=== PATIENT | female | born 1945 | race Caucasian/White ===

== ENCOUNTER → 2020-11-13 08:06 | Outpatient (CLI) | payer MEDICARE, SELFPAY ==
--- NOTE | ~2020-11-13 | XR_ITS ---
EXAMINATION: XR foot LT min 3V, XR ankle LT min 3V DATE: 11/13/2020 08:51 INDICATION: Follow-up postoperative changes with internal fixation in the left foot. TECHNIQUE: 1. Anteroposterior, mortise, additional oblique and lateral view of the left ankle were obtained. 2. Dorsoplantar, two oblique and lateral views of the left foot were obtained. COMPARISON: None. FINDINGS: Mild hallux valgus. There appears to be pes planus with flattening of the longitudinal arch although this is not diagnostically evaluated on nonweightbearing imaging. Postoperative change throughout the left mid and forefoot. This includes prior bunionectomy at the medial head of the first metatarsal. Likely realignment osteotomy at the base of the first proximal phalanx with staple fixation. First ta rsal metatarsal arthrodesis with dorsal plate and screw fixation. There is a fracture of the proximal most screw which extends into the medial cuneiform. The second most proximal screw as well as obliqu e screw both extend into the medial cuneiform and . Well seated without surrounding lucency to sugges t loosening. There does appear to be osseous fusion along the dorsal/lateral aspect of the joint spac e. Additional arthrodeses with compression screw fixations at the third and fourth proximal interphal angeal joints. There is attempted arthrodesis across the second proximal and distal interphalangeal j oints with a compression screw extending from the tuft of the distal phalanx through the middle phala nx to the distal aspect of the proximal phalanx. There is residual lucency along the proximal interph alangeal joint line along with lucency surrounding the proximal tip of the screw consistent with loos ening and likely failure of the attempted arthrodesis at the proximal interphalangeal joint. Osteotom ies with screw fixations at the necks of the second and third metatarsals. No acute fracture. Mild po lyarticular osteoarthritis at the calcaneocuboid and multiple tarsal metatarsal, metatarsophalangeal and at the remaining unfused interphalangeal joints. Small plantar calcaneal spur. Diffuse osteopenia . Increased density anterior to the tibiotalar joint line suggesting an ankle joint effusion or synov itis. IMPRESSION: 1. Multiple postoperative changes in the left fore and midfoot as detailed above. This most significa nt for likely failed arthrodesis across the second proximal interphalangeal joint with lucency surrou nding the proximal tip of the compression screw consistent with loosening. 2. Increased density anterior to the left ankle joint suggesting joint effusion and/or synovitis. Reviewed, dictated and finalized at location A. IMPRESSION: 1. Multiple postoperative changes in the left fore and midfoot as detailed abov e. This most significant for likely failed arthrodesis across the second proxim al interphalangeal joint with lucency surrounding the proximal tip of the compr ession screw consistent with loosening. 2. Increased density anterior to the left ankle joint suggesting joint effusion and/or synovitis.
--- NOTE | ~2020-11-13 | XR_ITS ---
EXAMINATION: XR ankle RT min 3V, XR foot RT min 3V DATE: 11/13/2020 08:51 INDICATION: Follow-up postoperative changes with internal fixation in the right foot. TECHNIQUE: 1. Anteroposterior, mortise, additional oblique and lateral view of the right ankle were obtained. 2. Dorsoplantar, two oblique and lateral views of the right foot were obtained. COMPARISON: None. FINDINGS: Alignment of the foot and ankle is normal. No fracture. Postoperative changes at the first metatarsal with dorsal sided staple and medial sided plate and screws at the base of the first metatarsal. More distally there is a compression screw crossing neck of the first metatarsal where there appears to b een a prior realignment osteotomy. There is a suture anchor along the medial side of the neck of the first metatarsal. Arthrodesis across the second proximal interphalangeal joint without instrumentatio n. No instrumentation failure or lucency surrounding any of the instrumentation to suggest loosening. 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 Minimal osteoarthritis at the tarsal metatarsal joints. Tiny plantar calcaneal spur. Increased dens ity anterior to the tibiotalar joint line suggesting possible small right ankle joint effusion. IMPRESSION: 1. Second proximal interphalangeal joint arthrodesis along with postoperative changes along the right first metatarsal as detailed above. Reviewed, dictated and finalized at location A. IMPRESSION: 1. Second proximal interphalangeal joint arthrodesis along with postoperative c hanges along the right first metatarsal as detailed above.
== END ==
PROVIDERS: PCP Family Medicine; Visit Provider Physician Assistant
DX: M79.671 Pain in right foot (principal); M79.672 Pain in left foot
CPT/HCPCS: 73610; 73630

== ENCOUNTER 2021-01-01 13:22 | Outpatient (CLI) | payer MEDICARE, SELFPAY ==
--- NOTE | ~2021-01-01 | XR_ITS ---
EXAMINATION: XR lg joint inject/asp w image DATE: 01/01/2021 15:24 INDICATION: Severe right glenohumeral osteoarthritis with right shoulder pain. TECHNIQUE: A time-out was performed to verify the patient's name, date of , and procedure to patria e performed. The procedure including the risks, benefits, and alternatives was discussed with the pat ient. Risks discussed included bleeding and infection. The patient understood the risks and agreed to proceed. The skin overlying the rotator cuff interval of the right glenohumeral joint was prepped a nd draped in usual sterile fashion. Anesthetic was administered with 1% lidocaine subcutaneously. A 22 G needle was advanced under fluoroscopic guidance into the joint. Injection of 1 mL of Omnipaque 240 confirmed intra-articular position of the needle. Subsequently, injectate consisting of 4 mL of a 3:1 mixture of 1% lidocaine: 80 mg/mL Depo-Medrol for a total dosage of 80 mg Depo-Medrol was inst illed. Washout of contrast was seen confirming intra-articular administration. The needle was removed and the entry site was cleaned and dressed. There were no immediate complications. Fluoroscopy expo sure time was 0.1 minutes. The total number of images was 2. Total DAP was 0.401 mGycm^2 FINDINGS: Real-time fluoroscopy demonstrates the needle in the right glenohumeral joint. Patient's pa in prior to procedure:11/27. Patient's pain following the procedure: 05/30. IMPRESSION: 1. Successful right glenohumeral injection of local anesthetic and steroid with decrease in the patie nt's presenting pain. Reviewed, dictated and finalized at location A. IMPRESSION: 1. Successful right glenohumeral injection of local anesthetic and steroid with decrease in the patient's presenting pain.
== END 2021-01-01 13:23 | disposition home or self-care (01) ==
PROVIDERS: PCP Family Medicine; Visit Provider Orthopaedic Surgery
DX: M25.511 Pain in right shoulder (principal); M19.011 Primary osteoarthritis, right shoulder
CPT/HCPCS: 20610; 77002; J1040; Q9966

== ENCOUNTER → 2021-03-07 15:19 | Outpatient (CLI) | payer MEDICARE, SELFPAY ==
--- NOTE | ~2021-03-07 | MM_ITS ---
EXAMINATION: MM screening jaciel BI w scott HISTORY: Screening mammogram, history of left breast cancer TECHNIQUE: Craniocaudal and mediolateral oblique 3-D tomosynthesis images were obtained and synthetic 2-D images were generated. CAD analysis was submitted and interpreted. COMPARISON: 07/07/2016 BREAST PARENCHYMAL COMPOSITION: There are scattered areas of fibroglandular density. FINDINGS: RIGHT BREAST: There is focal asymmetry in the upper outer quadrant of the breast. LEFT BREAST: Stable architectural distortion in the upper inner breast is consistent with lobectomy c hange. There is no evidence of suspicious mass, calcification, or architectural distortion to suggest malignancy. There has been no significant interval change. IMPRESSION: 1. Focal asymmetry of the upper outer quadrant of the right breast which may represent the patient's baseline however no right breast comparison is currently available. 2. Comparison with prior mammograms is necessary. BI-RADS Category 0: Incomplete: Needs comparison with prior mammograms. Reviewed, dictated and finalized at location A. 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 Focal asymmetry of the upper outer quadrant of the right breast which may re present the patient's baseline however no right breast comparison is currently available. 2. Comparison with prior mammograms is necessary. BI-RADS Category 0: Incomplete: Needs comparison with prior mammograms.
== END ==
PROVIDERS: Visit Provider Physician Assistant
DX: Z12.31 Encounter for screening mammogram for malignant neoplasm of breast (principal); R92.8 Other abnormal and inconclusive findings on diagnostic imaging of breast
CPT/HCPCS: 77063; 77067

== ENCOUNTER 2021-10-01 12:03 | Outpatient (CLI) | payer MEDICARE, SELFPAY ==
--- NOTE | ~2021-10-01 | DEXA_ITS ---
Bone Density Report Name: PRECIOUS [facility] Age: 75 Sex: Female Ethnicity: White Date of : 1945 Indication: postmenopausal; screening for osteoporosis; height loss; cancer; asthma or emphysema; Referring Provider: MARIAH SHARMA Study: Bone densitometry was performed. Exam Date: October 01, 2021 Accession number: [id number] Bone Density: Region BMD T-score Z-score Classification AP Spine(L1-L4) 0.909 -1.3 1.3 Osteopenia Femoral Neck (Left) 0.660 -1.7 0.5 Osteopenia Total Hip (Left) 0.831 -0.9 1.0 Normal Femoral Neck (Right) 0.657 -1.7 0.4 Osteopenia Total Hip (Right) 0.844 -0.8 1.1 Normal Total Hip Mean 0.837 -0.9 1.1 Normal World Health Organization criteria for BMD impression classify patients as: Normal (T-score at or above -1.0), Osteopenia (T-score between -1.0 and -2.5), or Osteoporosis (T-score at or below -2.5). 10-year Fracture Risk(1): Major Osteoporotic Fracture 13% Hip Fracture 2.9% Reported Risk Factors: [place] (), Neck BMD=0.660, BMI=31.2 (1) FRAX(R) Version 3.08. Fracture probability calculated for an untreated patient. Fracture probability may be lower if the patient has received treatment. Clinical Information Provided by Patient: Has used the following medications: Vitamin D, Calcium Has the following medical conditions: Asthma or Emphysema, Cancer Patient maximum height was 66 Menopause Age: 49 Drinks caffeinated beverages Onset of menses at age 15 Number of children 2 Impression: The patient has low bone mass, based on the Left Femoral Neck T-score. The patient has an estimated ten-year risk of hip fracture of 2.9% and an estimated ten-year risk of major fracture of 13%, based on the WHO FRAX algorithm. Discussion: BONE DENSITY IS LOW AT ONE OR MORE SKELETAL SITES. This patient's lowest T-score is low at one or more skeletal sites. It meets the World Health Organization's (WHO) criteria for ?low bone mass? (T-score between -1.0 and -2.5). The patient's 10-year risk of fracture as calculated by FRAX is less than the threshold where pharmacological therapy is recommended by the National Osteoporosis Foundation (NOF). However, all treatment decisions require clinical judgment and consideration of individual patient factors, including patient preferences, comorbidities, previous drug use, risk factors not captured in the FRAX model (e.g., frailty, falls, vitamin D deficiency, increased bone turnover, interval significant decline in bone density) and possible under or overestimation of fracture risk by FRAX. The patient should follow a healthful lifestyle (good nutrition with adequate calcium and vitamin D, and appropriate weight-bearing exercise). Follow-Up: Consider repeating this study in 2 to 3 years to reassess this patient's status, or sooner i
== END 2021-10-01 12:04 | disposition home or self-care (01) ==
PROVIDERS: PCP Family Medicine; Visit Provider Family Medicine
DX: Z78.0 Asymptomatic menopausal state (principal); M85.89 Other specified disorders of bone density and structure, multiple sites
CPT/HCPCS: 77080

== ENCOUNTER → 2022-01-17 07:52 | Outpatient (CLI) | payer MEDICARE, SELFPAY ==
--- NOTE | ~2022-01-17 | MMUS_ITS ---
EXAMINATION: MM diagnostic jaciel BI w scott, US breast BI complete HISTORY: Personal history of left breast ductal carcinoma in situ, treated with radiation. TECHNIQUE: ML, MLO and CC 3-D tomosynthesis images of both breasts were performed and synthetic 2-D i mages were generated. CAD analysis was submitted and interpreted. High resolution bilateral complete breast ultrasound including all 4 quadrants and subareolar areas was performed. COMPARISON: 03/07/2021, 02/29/2020, 02/23/2019 mammogram examinations BREAST PARENCHYMAL COMPOSITION: There are scattered areas of fibroglandular density. FINDINGS: MAMMOGRAPHIC FINDINGS: The left breast is chronically smaller than the right. Stable mild fibroglandular asymmetry. No suspi cious mass or architectural distortion, malignant calcification, skin thickening or retraction or sig nificant new or developing density is detected. ULTRASOUND: No suspicious mass or shadowing, cyst or other significant sonographic abnormality of either breast i s detected. IMPRESSION: 1. No mammographic evidence of malignancy 2. Routine annual mammographic screening is recommended. BI-RADS Category 2: Benign finding(s). Reviewed, dictated and finalized at location A. IMPRESSION: 1. No mammographic evidence of malignancy 2. Routine annual mammographic screening is recommended. BI-RADS Category 2: Benign finding(s).
== END ==
PROVIDERS: PCP Physician Assistant; Visit Provider Physician Assistant
DX: N63.20 Unspecified lump in the left breast, unspecified quadrant (principal); Z85.3 Personal history of malignant neoplasm of breast
CPT/HCPCS: 76641; 77062; 77066; G0279

== ENCOUNTER 2023-01-25 10:34 | Emergency (ER) | payer MEDICARE, SELFPAY ==
--- NOTE | ~2023-01-25 | XR_ITS ---
XR foot RT min 3V DATE: 01/25/2023 10:50 INDICATION: Foot pain after a fall yesterday TECHNIQUE: 4 views COMPARISON: 11/13/2020 right foot FINDINGS: There is a linear oblique minimally anteriorly displaced fracture of the distal shaft of th e fifth metatarsal bone. No other recent fracture or dislocation is evident. Postoperative change of the first metatarsal bone. Fusion at the proximal and middle phalanges of the second digit. Minimal plantar calcaneal enthesopathy. Diffuse osteopenia. IMPRESSION: Distal fifth metatarsal shaft fracture Reviewed, dictated and finalized at location A.
[2023-01-25 10:42] VITALS: BP 103/65; PULSE 80; RESP 18; TEMP 36.2; O2SAT 97
--- NOTE | 2023-01-25 10:45 | ED.LOWEXIN ---
HPI - Extremity Injury (Lower) General Chief Complaint: Extremity Injury, Lower Stated Complaint: Rt Foot Pain Due To Fall Source: patient Mode of arrival: ambulatory Limitations: no limitations History of Present Illness HPI Narrative: 77 y/o female presented for c/o right lateral foot pain after injury yesterday. States she tripped while walking in the park, landing on the grass and sidewalk, and striking the foot on the concrete. States she kept the foot elevated, took Tylenol Endorses bruising today. Reports no pain at rest, pain is 6-9/10 with walking. Denies any other pain or injury. Related Data Home Medications Medication Instructions Recorded Confirmed albuterol sulfate 90 mcg/actuation 1 puff inhalation Q4H PRN Dyspnea 04/29/19 01/25/23 aerosol inhaler (ProAir HFA) estradiol 0.01% (0.1 mg/gram) 1 gm vaginal WEEKLY PRN Vaginal 04/29/19 01/25/23 vaginal cream (Estrace) Dryness coenzyme Q10 100 mg capsule (Co 800 mg PO DAILY 06/15/19 01/25/23 Q-10) cholecalciferol (vitamin D3) 10 10 mcg PO DAILY 01/20/23 01/25/23 mcg (400 unit) capsule (Vitamin D3) clindamycin phosphate 1 % topical 1 applic topical DAILY PRN Rash 01/20/23 01/25/23 gel fluticasone propionate 50 2 spray intranasal DAILY 01/20/23 01/25/23 mcg/actuation nasal spray,suspension glucosamine sulf dipot 1 cap PO DAILY 01/20/23 01/25/23 chlr,msm,chond 550 mg-C 30 mg-jordon 1 mg capsule (Glucosamine Chondroitin) meloxicam 15 mg tablet 15 mg PO DAILY 01/20/23 01/25/23 pyridoxine (vitamin B6) 100 mg 100 mg PO DAILY 01/20/23 01/25/23 tablet tumeric 100 mg-claudy 150 mg-olive 1 cap PO DAILY 01/20/23 01/25/23 50 mg-oreg 150 mg-caprylate capsule vitamins A,C,Y-qykq-ejuiys 2,148 1 tablet PO DAILY 01/20/23 01/25/23 mcg-113 mg-45 mg-17.4 mg tablet (PreserVision AREDS) Allergies Allergy/AdvReac Type Severity Reaction Status Date / Time cefuroxime Allergy Severe Anaphylactic Verified 01/25/23 10:35 Shock tetracycline AdvReac Mild Redness of Verified 01/25/23 10:36 Skin Review of Systems Review of Systems: CONSTITUTIONAL: Denies body aches, fever, chills EYES: Denies visual changes ENT: Denies rhinorrhea, congestion CARDIOVASCULAR: Denies chest pain, palpitations, or edema. RESPIRATORY: Denies cough or dyspnea. GASTROINTESTINAL: Denies abdominal pain, nausea, vomiting, or diarrhea. SKIN: Denies rash, itching, or wounds. MUSCULOSKELETAL: Reports right foot pain Denies back pain, joint pain, or myalgia. NEUROLOGIC: Denies headache, numbness, tingling, or weakness. All systems reviewed & are unremarkable except as noted in HPI and below PMFSH Past Medical History Medical History Family history of colorectal cancer Surgical History Surgical History H/O shoulder surgery right Family History Family History Sibling Family history of thyroid disease Family history of diabetes mellitus in first degree relative Father Family history of Parkinson's disease Mother Carcinoma of colon Other Diabetes mellitus Family history of alcoholism Family history of arthritis Family history of gout Family history of mental disorder Social History Social History Social History: Smoking packs per day: 1 Smoking cigarettes per day: 20.0 Years smoked: 16 Smoking pack-years: 16.00 Smoking status: Former smoker Tobacco type: cigarettes Second hand tobacco smoke exposure: No Smoking end date: 04/20/89 Alcohol intake: current Drinks per week: 1 Substance use: never Substance use type: does not use Living arrangements: with family Occupation/Education: retired Gender identity (if verbalized by the patient): Female Sexual Orientation (if Verbalized by the Pa
== END 2023-01-25 11:58 | disposition home or self-care (01) ==
PROVIDERS: Emergency Provider Nurse Practitioner Family; PCP Family Medicine
DX: S92.351A Displaced fracture of fifth metatarsal bone, right foot, initial encounter for closed fracture (principal); Z79.899 Other long term (current) drug therapy; Z79.1 Long term (current) use of non-steroidal anti-inflammatories (NSAID); Z87.891 Personal history of nicotine dependence; W01.0XXA Fall on same level from slipping, tripping and stumbling without subsequent striking against object, initial encounter; Y92.830 Public park as the place of occurrence of the external cause
CPT/HCPCS: 29515; 73630; 99214; G0463

== ENCOUNTER → 2023-01-28 13:20 | Outpatient (CLI) | payer MEDICARE, SELFPAY ==
--- NOTE | ~2023-01-28 | MM_ITS ---
EXAMINATION: MM screening jaciel BI w scott HISTORY: Screening mammogram, family history of breast cancer in her mother. There is a TECHNIQUE: Craniocaudal and mediolateral oblique 3-D tomosynthesis images were obtained and synthetic 2-D images were generated. CAD analysis was submitted and interpreted. COMPARISON: 01/17/2022 bilateral diagnostic mammography and bilateral complete breast ultrasound exami nation 03/07/2021 bilateral screening mammogram BREAST PARENCHYMAL COMPOSITION: There are scattered areas of fibroglandular density. FINDINGS: Status post left partial mastectomy for breast cancer. There is no evidence of suspicious mass, calcification, or architectural distortion to suggest malig olivier in either breast. There has been no suspicious interval change. IMPRESSION: 1. Status post left partial mastectomy for breast cancer . No mammographic evidence of malignancy. 2. Recommend routine screening mammography in one year. BI-RADS Category 2: Benign finding(s). Reviewed, dictated and finalized at location A. IMPRESSION: 1. Status post left partial mastectomy for breast cancer . No mammographic petra dence of malignancy. 2. Recommend routine screening mammography in one year. BI-RADS Category 2: Benign finding(s).
== END ==
PROVIDERS: PCP Physician Assistant; Visit Provider Physician Assistant
DX: Z12.31 Encounter for screening mammogram for malignant neoplasm of breast (principal); Z80.3 Family history of malignant neoplasm of breast
CPT/HCPCS: 77063; 77067

== ENCOUNTER 2023-03-31 00:06 | Day surgery (SDC) | payer MEDICARE, SELFPAY ==
[2023-01-20 12:59] VITALS: BMI 29.2
[2023-03-17 14:09] VITALS: BMI 29.1
--- NOTE | 2023-03-27 13:53 | SUR.PREOP ---
Patient called regarding upcoming procedure. Message left on patient's voicemail regarding preop instructions, appointment times, and procedure prep.
[2023-03-31 08:41] VITALS: BP 137/79; PULSE 72; RESP 16; TEMP 36; O2SAT 95; BMI 29.2
[2023-03-31] MEDS: LACTATED RINGERS 1,000 ML 150 ML IV CONT (08:52)
--- NOTE | 2023-03-31 09:26 | PM.HPGS ---
History of Present Illness History of Present Illness Consent: Risks, benefits, and alternatives have been discussed and questions answered. Patient agrees to proceed with procedure. Chief complaint: Fam hx of malignant neoplasm of digestive organs Narrative: Caty Petty is a 77 year old female Presents for screening colonoscopy. Patient's current weight appetite and bowel movements are normal. She denies abdominal pain. Family history is significant her mother had colon cancer. There is many relatives on both sides of her family that have had colon cancer including aunts uncles cousins. Patient presents today for surveillance screening colonoscopy. Review of Systems Review of Systems: Review of systems noncontributory. [facility] Past Medical History Medical History Family history of colorectal cancer Metatarsal bone fracture Right side. Surgical History Surgical History H/O shoulder surgery right History of foot surgery bilateral bunionectomy, left foot screws Family History Family History Sibling Family history of thyroid disease Family history of diabetes mellitus in first degree relative Bladder cancer Father Family history of Parkinson's disease Mother Carcinoma of colon Other Diabetes mellitus Family history of alcoholism Family history of arthritis Family history of gout Family history of mental disorder Social History Social History Social History: Smoking packs per day: 1 Smoking cigarettes per day: 20.0 Years smoked: 16 Smoking pack-years: 16.00 Smoking status: Former smoker Tobacco type: cigarettes Second hand tobacco smoke exposure: No Smoking end date: 04/20/89 Alcohol intake: current Drinks per week: 1 Substance use: never Substance use type: does not use Current Housing: Decline to Answer Concerned About Future Housing: Decline to Answer Difficulty Paying Gas/Electric Bills: Decline to Answer Difficulty Paying for Meds: Decline to Answer Currently Unemployed: Decline to Answer Education: Decline to Answer Difficulty w/ Childcare or Family Care: Decline to Answer Living arrangements: with family Occupation/Education: retired Gender identity (if verbalized by the patient): Female Sexual Orientation (if Verbalized by the Patient): Straight or Heterosexual Spiritual care concerns: No Meds Home Medications and Allergies Home Medications Medication Instructions Recorded Confirmed Type albuterol sulfate 90 mcg/actuation 1 puff inhalation Q4H PRN Dyspnea 04/29/19 03/31/23 History aerosol inhaler (ProAir HFA) estradiol 0.01% (0.1 mg/gram) 1 gm vaginal WEEKLY PRN Vaginal 04/29/19 03/31/23 History vaginal cream (Estrace) Dryness coenzyme Q10 100 mg capsule (Co 800 mg PO DAILY 06/15/19 03/31/23 History Q-10) levothyroxine 88 mcg tablet 88 mcg PO DAILY #90 tabs 09/16/22 03/31/23 Rx (Synthroid) cholecalciferol (vitamin D3) 10 10 mcg PO DAILY 01/20/23 03/31/23 History mcg (400 unit) capsule (Vitamin D3) clindamycin phosphate 1 % topical 1 applic topical DAILY PRN Rash 01/20/23 03/31/23 History gel fluticasone propionate 50 2 spray intranasal DAILY 01/20/23 03/31/23 History mcg/actuation nasal spray,suspension glucosamine sulf dipot 1 cap PO DAILY 01/20/23 03/31/23 History chlr,msm,chond 550 mg-C 30 mg-jordon 1 mg capsule (Glucosamine Chondroitin) pyridoxine (vitamin B6) 100 mg 100 mg PO DAILY 01/20/23 03/31/23 History tablet tumeric 100 mg-claudy 150 mg-olive 1 cap PO DAILY 01/20/23 03/31/23 History 50 mg-oreg 150 mg-caprylate capsule vitamins A,C,M-mppa-eflame 2,148 1 tablet PO DAILY 01/20/23 03/31/23 History mcg-113 mg-45 mg-17.4 mg ta
--- NOTE | 2023-03-31 09:46 | WPDANESEPPF ---
Anes - Initial Pre Proc Eval Procedure: Operation Date: 03/31/23 10:00 Proposed Procedures p Colonoscopy - Karri Pelaez MD Date/Time: 03/31/23 09:46 Surgeon: Karri Pelaez MD Pre Op Diagnosis: Fam hx of malignant neoplasm of digestive organs Patient Data Age: 77 Gender: F Height: 1.63 m Weight: 77.4 kg Last Vital Signs Temp 96.8 F L 03/31/23 08:41 Pulse 72 03/31/23 08:41 Resp 16 03/31/23 08:41 BP 137/79 03/31/23 08:41 Pulse Ox 95 03/31/23 08:41 O2 Del Method Room Air 03/31/23 08:41 Allergies Allergy/AdvReac Type Severity Reaction Status Date / Time cefuroxime Allergy Severe Anaphylactic Verified 03/31/23 08:38 Shock tetracycline AdvReac Mild Redness of Verified 03/31/23 08:38 Skin Home Medications Medication Instructions Recorded Confirmed Type albuterol sulfate 90 mcg/actuation 1 puff inhalation Q4H PRN Dyspnea 04/29/19 03/31/23 History aerosol inhaler (ProAir HFA) estradiol 0.01% (0.1 mg/gram) 1 gm vaginal WEEKLY PRN Vaginal 04/29/19 03/31/23 History vaginal cream (Estrace) Dryness coenzyme Q10 100 mg capsule (Co 800 mg PO DAILY 06/15/19 03/31/23 History Q-10) levothyroxine 88 mcg tablet 88 mcg PO DAILY #90 tabs 09/16/22 03/31/23 Rx (Synthroid) cholecalciferol (vitamin D3) 10 10 mcg PO DAILY 01/20/23 03/31/23 History mcg (400 unit) capsule (Vitamin D3) clindamycin phosphate 1 % topical 1 applic topical DAILY PRN Rash 01/20/23 03/31/23 History gel fluticasone propionate 50 2 spray intranasal DAILY 01/20/23 03/31/23 History mcg/actuation nasal spray,suspension glucosamine sulf dipot 1 cap PO DAILY 01/20/23 03/31/23 History chlr,msm,chond 550 mg-C 30 mg-jordon 1 mg capsule (Glucosamine Chondroitin) pyridoxine (vitamin B6) 100 mg 100 mg PO DAILY 01/20/23 03/31/23 History tablet tumeric 100 mg-claudy 150 mg-olive 1 cap PO DAILY 01/20/23 03/31/23 History 50 mg-oreg 150 mg-caprylate capsule vitamins A,C,Z-kwph-jmidel 2,148 1 tablet PO DAILY 01/20/23 03/31/23 History mcg-113 mg-45 mg-17.4 mg tablet (PreserVision AREDS) meloxicam 15 mg tablet 15 mg PO DAILY #90 tabs 03/16/23 03/31/23 Rx Patient hx anesthesia problems: none Family hx anesthesia problems: none Results Review: All pre-operative results and documents have been reviewed as part of the pre-operative evaluation. [facility] Past Medical History Medical History Family history of colorectal cancer Metatarsal bone fracture Right side. Surgical History Surgical History H/O shoulder surgery right History of foot surgery bilateral bunionectomy, left foot screws Family History Family History Sibling Family history of thyroid disease Family history of diabetes mellitus in first degree relative Bladder cancer Father Family history of Parkinson's disease Mother Carcinoma of colon Other Diabetes mellitus Family history of alcoholism Family history of arthritis Family history of gout Family history of mental disorder Social History Social History Social History: Smoking packs per day: 1 Smoking cigarettes per day: 20.0 Years smoked: 16 Smoking pack-years: 16.00 Smoking status: Former smoker Tobacco type: cigarettes Second hand tobacco smoke exposure: No Smoking end date: 04/20/89 Alcohol intake: current Drinks per week: 1 Substance use: never Substance use type: does not use Current Housing: Decline to Answer Concerned About Future Housing: Decline to Answer Difficulty Paying Gas/Electric Bills: Decline to Answer Difficulty Paying for Meds: Decline to Answer Currently Unemployed: Decline to Answer Education: Decline to Answer Difficulty w/ Childcare o
[2023-03-31 10:36] VITALS: BP 98/64; PULSE 65; RESP 17; O2SAT 96
[2023-03-31 10:46] VITALS: BP 104/61; PULSE 60; RESP 18; O2SAT 97
[2023-03-31 10:56] VITALS: BP 129/78; PULSE 58; RESP 16; O2SAT 98
== END 2023-03-31 11:08 | disposition home or self-care (01) ==
PROVIDERS: PCP Physician Assistant; Visit Provider Internal Medicine Gastroenterology
PROC: 0DJD8ZZ Inspection of Lower Intestinal Tract, Via Natural or Artificial Opening Endoscopic (ICD-10-PCS; CPT 45378; principal; 2023-03-31 10:00)
DX: Z12.11 Encounter for screening for malignant neoplasm of colon (principal); K64.8 Other hemorrhoids; K57.30 Diverticulosis of large intestine without perforation or abscess without bleeding; Z80.0 Family history of malignant neoplasm of digestive organs; Z79.51 Long term (current) use of inhaled steroids; Z87.891 Personal history of nicotine dependence
CPT/HCPCS: G0105; J2704; J7120

== ENCOUNTER 2024-02-08 16:57 | Outpatient (CLI) | payer MEDICARE, SELFPAY ==
--- NOTE | ~2024-02-08 | XR_ITS ---
XR foot RT min 3V Ordering provider: Eduin Mueller PA-C History: . M79.671 - Pain in right foot . Comparison: February 19, 2023 FINDINGS: BONES: Acute fractures seen in the distal metaphysis of the fourth metatarsal bone with slight displa cement of the bones. Postoperative changes in the first metatarsal bone. JOINT SPACES: Slight narrowing of the proximal and distal interphalangeal joints. No tarsal coalition . SOFT TISSUES: Normal. Calcaneus spur. IMPRESSION: Acute fracture of the distal metaphysis of the fourth metatarsal bone.. Reviewed, dictated and finalized at location A.
== END 2024-02-08 16:58 | disposition home or self-care (01) ==
LOC: ANHIMG 17:00
PROVIDERS: PCP Family Medicine; Visit Provider Physician Assistant
DX: M79.671 Pain in right foot (principal); S99.921A Unspecified injury of right foot, initial encounter; X58.XXXA Exposure to other specified factors, initial encounter
CPT/HCPCS: 73630

== ENCOUNTER 2024-03-30 11:39 | Outpatient (CLI) | payer MEDICARE, SELFPAY ==
--- NOTE | ~2024-03-30 | MM_ITS ---
EXAMINATION: MM screening jaciel BI w scott HISTORY: Screening TECHNIQUE: Craniocaudal and mediolateral oblique 3-D tomosynthesis images were obtained and synthetic 2-D images were generated. CAD analysis was submitted and interpreted. COMPARISON: Comparison to multiple prior studies sequentially, with oldest reviewed study dated 09/2018. BREAST PARENCHYMAL COMPOSITION: Not dense: There are scattered areas of fibroglandular density. FINDINGS: There is no evidence of suspicious mass, calcification, or architectural distortion to sugg est malignancy in either breast. There has been no suspicious interval change. IMPRESSION: 1. No mammographic evidence of malignancy. 2. Recommend routine screening mammography in one year. BI-RADS Category 1: Negative Reviewed, dictated and finalized at location B. TAL ASSISTANT
== END 2024-03-30 11:40 | disposition home or self-care (01) ==
LOC: MICIMG 11:40
PROVIDERS: PCP Family Medicine; Visit Provider Physician Assistant Medical
DX: Z12.31 Encounter for screening mammogram for malignant neoplasm of breast (principal)
CPT/HCPCS: 77063; 77067

== ENCOUNTER 2024-04-04 14:23 | Outpatient (CLI) | payer MEDICARE, SELFPAY ==
--- NOTE | ~2024-04-04 | DEXA_ITS ---
Bone Density Report Name: PRECIOUS [facility] Age: 78 Sex: Female Ethnicity: White Date of : 1945 Indication: osteopenia; height loss; prior fracture; cancer; Referring Provider: MARIAH SHARMA Study: Bone densitometry was performed. Exam Date: April 04, 2024 Accession number: [id number] Bone Density: Region BMD T-score Z-score Classification AP Spine(L1, L3) 0.853 -1.5 1.1 Osteopenia Femoral Neck (Left) 0.608 -2.2 0.1 Osteopenia Total Hip (Left) 0.805 -1.1 0.9 Osteopenia Femoral Neck (Right) 0.612 -2.1 0.1 Osteopenia Total Hip (Right) 0.852 -0.7 1.3 Normal Total Hip Mean 0.828 -0.9 1.1 Normal World Health Organization criteria for BMD impression classify patients as: Normal (T-score at or above -1.0), Osteopenia (T-score between -1.0 and -2.5), or Osteoporosis (T-score at or below -2.5). 10-year Fracture Risk(1): Major Osteoporotic Fracture 22% Hip Fracture 6.1% Reported Risk Factors: [place] (), Neck BMD=0.608, BMI=30.9, previous fracture (1) FRAX(R) Version 3.08. Fracture probability calculated for an untreated patient. Fracture probability may be lower if the patient has received treatment. Previous Exams: Region Exam Age BMD T-score BMD Change BMD Change Date g/cm2 vs Baseline vs Previous AP Spine (L1,L3) 04/04/2024 78 0.853 -1.5 -0.075 (-8.1%) -0.012 (-1.4%) 10/01/2021 75 0.865 -1.3 -0.063 (-6.8%) -0.063 (-6.8%) 05/13/2019 73 0.928 -0.8 Total Hip(Left) 04/04/2024 78 0.805 -1.1 -0.068 (-7.8%) -0.026 (-3.1%) 10/01/2021 75 0.831 -0.9 -0.043 (-4.9%) -0.043 (-4.9%) 05/13/2019 73 0.874 -0.6 Total Hip(Right) 04/04/2024 78 0.852 -0.7 -0.020 (-2.3%) 0.008 (0.9%) 10/01/2021 75 0.844 -0.8 -0.028 (-3.2%) -0.028 (-3.2%) 05/13/2019 73 0.872 -0.6 *Denotes significance at 95% confidence level, LSC for AP Spine = 0.022 g/cm2, LSC for Total Hip = 0.027 g/cm2 Clinical Information Provided by Patient: Has had a low trauma fracture Has used the following medications: Vitamin D, Calcium Has the following medical conditions: Cancer, breast ca Patient maximum height was 66 Menopause Age: 49 Drinks caffeinated beverages Onset of menses at age 15 Number of children 2 Impression: The patient has low bone mass, based on the Left Femoral Neck T-score. The patient has an estimated ten-year risk of hip fracture of 6.1% and an estimated ten-year risk of major fracture of 22%, based on the WHO FRAX algorithm. The patient has risk factors, including: previous fracture. No significant bone loss was observed. Discussion: BONE DENSITY IS LOW AT ONE OR MORE SKELETAL SITES. THE PATIENT'S BMD AND CLINICAL RISK FACTORS CONTRIBUTE TO THIS PATIENT'S HIGH RISK OF FRACTURE. This patient's lowest T-score is low at one or more skeletal sites. It meets the World Health Organization's (WHO) criteria for ?low bone mass? (T-score between -1.0 and -2.5). The patient's 10-year risk of hip fracture and 10 year risk of a major osteoporotic fracture as calculated by FRAX exceeds the threshold where pharmacological therapy is recommended by the National Osteoporosis Foundation (NOF). However, all treatment decisions require clinical judgment and consideration of individual patient factors, including patient preferences, comorbidities, previous drug use, risk factors not captured in the FRAX model (e.g., frailty, falls, vitamin D deficiency, increased bone turnover, interval significant decline in bone density) and possible under or overestimation of fracture risk by FRAX. The patient should follow a healthful lifestyle (good nutrition with adequate calcium and vitamin D, and appropriate weight-bearing exercise). Follow-Up: Consider a repeat BMD and Vertebral Fracture Assessment (VFA) exam in 2 years or sooner if medically necessary, to reassess this patient's status. Reported by: INDY on 04/04/2024 2:54:00 PM. Reviewed, dictated and finalized at [facility]
== END 2024-04-04 14:24 | disposition home or self-care (01) ==
LOC: ANHIMG 14:23
PROVIDERS: PCP Family Medicine; Visit Provider Physician Assistant
DX: Z78.0 Asymptomatic menopausal state (principal); M85.88 Other specified disorders of bone density and structure, other site; M85.852 Other specified disorders of bone density and structure, left thigh; M85.851 Other specified disorders of bone density and structure, right thigh
CPT/HCPCS: 77080

== ENCOUNTER 2024-07-07 10:49 | Outpatient (CLI) | payer MEDICARE, SELFPAY ==
--- OUTSIDE RECORDS SUMMARY | 2024-07-07 11:42 | XMS_ITS | Continuity of Care Document ---
Author Organization [facility] Address [address] [facility] [address] [facility] [address] [place] [address] Phone Care Team Providers Care Access Specialist Name Role Phone Taylor OD, Karri Unavailable Unavailable Procedures Procedure Date Office/outpatient Visit, [facility] Advance Directives Directive Yes / No Effective Date File Name No Information Encounters Encounter Description Practice Location Reason(s) For Visit Diagnoses Date Provider Providers Copied on Encounter Office/outpat ient Visit, [facility], [address], [place], [place], [id number], [place] tel:[phone] [facility] No Information Jun-0 1-200 7 Taylor OD Karri. [address] , [address], [place], [address], [place]. tel:[phone] Family History Family Member Type Diagnosis Age At Onset No Information Payers Payer name Insurance type Covered republican ID Authoriza tion(s) No Information Social History Type Description Quantity Date Captured Comments Sex Female Smoking Status No Information Chief Complaint And Reason For Visit No Information Reason For Referral Reason For Referral No Information History Of Present Illness Encounter Date Complaint History Of Prese nt Illness No Information Functional Status Date Functional Assessmen t No Information Instructions Date Instruction Additional Infor mation No Information Assessments Type Assessment Date No Information Patient Care Teams Name Effective Dates (start - stop) Status Members No Information
--- OUTSIDE RECORDS SUMMARY | 2024-07-07 11:42 | XMS_ITS | Referral Summary ---
Author Organization [facility] Address [address] [place] [address] Care Team Providers Care Anesthesiology Crna Name Role Phone Robinson Olivo MD Primary Care Provider Allergies Active Allergy Reactions Criticality Noted Date Comments Cefuroxime Axetil Anaphylaxis High 07/23/2016 Tetracyclines Flushing (skin) Low 10/03/2009 Medications fluticasone propionate (FLONASE) 50 mcg/actuation nasal sprayIndication s:Chronic Non-Allergic Rhinitis Administer 2 sprays into each nostril every morning Active cholecalciferol (VITAMIN D-3) 5,000 unit capsuleIndicati ons:Vitamin D Deficiency Take 1 capsule (5,000 Units total) by mouth nightly Active levothyroxine (SYNTHROID) 88 mcg tabletIndicatio ns:hypothyroidi sm Take 1 tablet (88 mcg total) by mouth tagman before breakfast 1 Active vitamins A,C,E-zinc-adrian er (ICAPS) 14,320-226-200 ygzr-ui-eobx capsuleIndicati ons:Vitamin Deficiency Take 1 capsule by mouth nightly Active alpha lipoic acid 600 mg capsule Take 1 capsule (600 mg total) by mouth nightly Active pyridoxine (VITAMIN B-6) 100 mg tablet Take 1 tablet (100 mg total) by mouth nightly Active meloxicam (MOBIC) 15 mg tablet 2 Active ipratropium (ATROVENT) 42 mcg (0.06 %) nasal sprayIndication s:Post-nasal drainage Administer 2 sprays into each nostril 3 (three) times a day 30 mL 3 4 Active Active Problems Problem Noted Date Diagnosed Date Post-nasal drainage 2023 Chronic pansinusitis 2023 Blood in ear canal, bilateral 2023 HLD (hyperlipidemia) 05/28/2021 Hypothyroidism 05/28/2021 Asthma 05/28/2021 Rotator cuff tear arthropathy of right shoulder 04/02/2021 Overview (04/02/2021): Added automatically from request for surgery [id number] Axillary lymphadenopathy 05/16/2019 History of breast cancer 02/17/2018 Encounter for screening mamm ogram for malignant neoplasm of breast 02/17/2018 Breast asymmetry 03/06/2017 Social History Tobacco Use Types Packs/Day Years Used Date Smoking Tobacco: Every Day Cigarettes 1 15 Smokeless Tobacco: Never Tobacco Cessation:Ready to Q uit: Not Asked; Counseling Given: Not Answered AUDIT-C Answer Date Recorded Q1: How often do you have a drink containing alc ohol? 2-4 times a month 05/30/2021 Q2: How many drinks containi ng alcohol do you have on a typical day when you are drinking? 1 or 2 05/30/2021 Q3: How often do you have si x or more drinks on one occasion? 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 Gender Identity Not on file Sexual Orientation Not on file Last Filed Vital Signs Vital Sign Reading Time Taken Comments Blood Pressure 122/67 05/31/2021 8:00 AM WILDLIFE BIOSTATION RESEARCH ECOLOGIST Pulse 90 05/31/2021 8:00 AM WILDLIFE BIOSTATION RESEARCH ECOLOGIST Temperature 36.1 C (97 F) 05/31/2021 8:00 AM WILDLIFE BIOSTATION RESEARCH ECOLOGIST Respiratory Rate 18 2023 11:09 AM CDT Oxygen Saturation 93% 05/31/2021 9:00 AM WILDLIFE BIOSTATION RESEARCH ECOLOGIST Inhaled Oxygen Concentration - - Weight 77.1 kg (170 lb) 2023 11:09 AM CDT Height 162.6 cm (5' 4 ) 2023 11:09 AM CDT Body Mass Index 29.18 2023 11:09 AM CDT Plan of Treatment Not on file Medical Devices Implanted Type Area Drilling Fluids Specialist Device Identifier Shelf Expiration Date Model / Serial / Lot Screws,Plates Bilateral: Ankle [employer] [id number] Latitude 8-15mm Restrictor Elbow Restrictor Cement - [id number] - [id number] Implanted:Qty: 1 on 05/30/2021 by Shant Vital MD at [facility] Right: Shoulder MiNeeds [id number] 02/02/2025 [id number] / [id number] / MiNeeds Dwx2pl Stem Perform Sz 2 Plus Humeral Long - [id number] - [id number] Implanted:Qty: 1 on 05/30/2021 by Shant Vital MD at [facility] Right: Shoulder MiNeeds [id number] 09/07/2025 [id number] / [id number] / MiNeeds [id number] Insert Perform 10 Deg [id number] - [id number] - [id number] Implanted:Qty: 1 on 05/30/2021 by Shant Vital MD at [facility] Right: Shoulder MiNeeds [id number] 02/18/2026 [id number] / [id number] / [employer] 6191-1-010 Simplex P Radiopaque Full Dose Cement Bone Sterile - [id number] Implanted:Qty: 1 on 05/30/2021 by Shant Vital MD at [facility] Right: Shoulder [employer] 06/18/2023 6191-1-01 0 / / [id number] [employer] (formerly [employer]) [id number] Tornier Aequalis Perform 25mm Reverse Shoulder Standard Baseplate - [id number] - [id number] Implanted:Qty: 1 on 05/30/2021 by Shant Vital MD at [facility] Right: Shoulder MiNeeds [id number] 04/09/2026 [id number] / [id number] / MiNeeds [id number] Aequalis Perform 7mm Reverse Screw Bone Sterile Latex Free - [id number] - [id number] Implanted:Qty: 1 on 05/30/2021 by Shant Vital MD at [facility] Right: Shoulder [employer] [id number] 05/03/2026 [id number] / [id number] / Tornier Inc [id number] Aequalis Perform Reversed 5mm 26mm Peripheral Glenoid Screw - [id number] Implanted:Qty: 1 on 05/30/2021 by Shant Vital MD at [facility] Right: Shoulder [employer] [id number] / / Tornier Inc [id number] Aequalis Perform Reversed 5mm 18mm Peripheral Glenoid Screw - [id number] Implanted:Qty: 1 on 05/30/2021 by Shant Vital MD at [facility] Right: Shoulder [employer] [id number] / / Tornier Inc [id number] Aequalis Perform Reversed 5mm 38mm Peripheral Glenoid Screw - [id number] Implanted:Qty: 1 on 05/30/2021 by Shant Vital MD at [facility] Right: Shoulder [employer] [id number] / / Tornier Inc [id number] Aequalis Perform Reversed 5mm 22mm Peripheral Glenoid Screw - [id number] Implanted:Qty: 1 on 05/30/2021 by Shant Vital MD at [facility] Right: Shoulder [employer] [id number] / / Tornier Inc [id number] Tornier Aequalis Perform 36mm Reverse Shoulder Standard Sphere - [id number] - [id number] Implanted:Qty: 1 on 05/30/2021 by Shant Vital MD at [facility] Right: Shoulder [employer] [id number] 04/01/2026 [id number] / [id number] / Insurance A[employer] MEDICARE MEDICARE SOL[facility]IONS [facility] MEDIC[facility] Address: [address] [address] [place] [address] A[employer] MEDICARE Advance Directives For more information, please contact: [phone] Documents on File Type Date Recorded Patient Guidance Consultant Expl anation ADVANCE DIRECTIVE 05/30/2021 7:42 AM * Full Code (Latest Code Status on File) Date Activated Date Inactivated Comments 05/30/2021 12:48 PM 05/31/2021 3:48 PM Care Teams Anesthesiology Crna Relationship Specialty Start Date End Date Robinson Olivo MD [address] [facility] [address] [place] [address] PCP - General 02/11/17
--- OUTSIDE RECORDS SUMMARY | 2024-07-07 11:42 | XMS_ITS | Clinical Summary ---
Author Organization [facility] Address [address] [place] [address] Care Team Providers Care Roll Cleaner Name Role Phone Robinson Olivo MD Primary [...] 1 tablet (88 mcg total) by mouth glass beveler before breakfast 1 Active vitamins A,C,E-zinc-adrian er (ICAPS) 14,320-226-200 pski-gf-dsxp capsuleIndicati ons:Vitamin Deficiency Take 1 capsule by [...] (04/02/2021): Added automatically from request for surgery [id number] Axillary lymphadenopathy 05/16/2019 History of breast cancer 02/17/2018 Encounter for screening mamm ogram for malignant neoplasm of breast 02/17/2018 Breast asymmetry 03/06/2017 Surgical History Surgery Date Site/Laterality Comments BREAST LUMPECTOMY Left Breast Lumpectomy - (Added by TW Conv) FOOT SURGERY Left 11/2016 ABDOMINAL SURGERY NASAL SEPTUM SURGERY 1969, 1979, 1989 BUNIONECTOMY 2012, 2016 SHOULDER SURGERY 04/20/2021 - 04/19/2022 Medical History Medical History Date Comments Personal history of malignan t neoplasm of breast History of malignant neoplas m of breast - (Added by TW Conv) Asthma Thyroid disease Arthritis Cancer (HCC) Diverticulitis Hyperthyroidism Allergic rhinitis Sinusitis HL (hearing loss) Tinnitus Migraine Family History Medical History Relation Name Comments Clotting disorder Brother Diabetes Brother Clotting disorder Father Parkinsonism Father Cancer Mother Heart disease Mother Heart failure Mother Skin cancer Mother Family history of skin cancer - (Added by TW Conv) Relation Name Status Comments Brother Father Mother Social History Tobacco Use Types Packs/Day Years [...] on file Legal Sex 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 Gender Identity Not on file Sexual Orientation Not on file Obstetrics History Last Filed Vital Signs Vital Sign Reading Time Taken Comments Blood Pressure 122/67 05/31/2021 8:00 AM PHONE CIRCUIT OPERATOR Pulse 90 05/31/2021 8:00 AM PHONE CIRCUIT OPERATOR Temperature 36.1 C (97 F) 05/31/2021 8:00 AM PHONE CIRCUIT OPERATOR Respiratory Rate 18 2023 11:09 AM CDT Oxygen Saturation 93% 05/31/2021 9:00 AM PHONE CIRCUIT OPERATOR Inhaled Oxygen Concentration - - Weight 77.1 kg (170 lb) 2023 11:09 AM CDT Height 162.6 cm (5' 4 ) 2023 11:09 AM CDT Body Mass Index 29.18 2023 11:09 AM CDT Plan of Treatment Health Maintenance Due Date Last Done Comments Depression Screening 1945 Hepatitis C Screening 1945 Osteoporosis Screening-Bone Density Scan 1945 Hepatitis B Screening 1962 Well Visit 65+ 2009 Pneumococcal vaccine 65+ (2 of 2 - PPSV23) 03/10/2017 01/13/2017 Zoster Vaccine (3 of 3) 03/10/2018 01/13/2018, 09/30 Fall Risk Assessment 05/31/2022 05/31/2021 Covid-19 Vaccine (4 - 2023-2 5 season) 2023 01/21/2021, 07/04/2020, 06/12/2020 Influenza Vaccine (#1) 2023 , 01/02/2020, 01/14/2019, Additional history exists DTaP/Tdap/Td Vaccine (2 - Td or Tdap) 06/16/2026 06/16/2016 Medical Devices Implanted Type Area Road Equipment Operator Device Identifier Shelf Expiration Date Model / Serial / Lot Screws,Plates Bilateral: Ankle [employer] Inc [id number] Latitude 8-15mm Restrictor Elbow Restrictor Cement - [id number] - [id number] Implanted:Qty: 1 on 05/30/2021 by Shant Vital MD at [facility] Right: Shoulder [employer] [id number] 02/02/2025 [id number] / [id number] / [employer] Dwx2pl Stem Perform Sz 2 Plus Humeral Long - [id number] - [id number] Implanted:Qty: 1 on 05/30/2021 by Shant Vital MD at [facility] Right: Shoulder [employer] [id number] 09/07/2025 [id number] / [id number] / [employer] [id number] Insert Perform 10 Deg [id number] - [id number] - [id number] Implanted:Qty: 1 on 05/30/2021 by Shant Vital MD at [facility] Right: Shoulder [employer] [id number] 02/18/2026 [id number] / [id number] / [employer] 6191-1-010 Simplex P Radiopaque Full Dose Cement Bone Sterile - [id number] Implanted:Qty: 1 on 05/30/2021 by Shant Vital MD at [facility] Right: Shoulder [employer] 06/18/2023 6191-1-01 0 / / [id number] Tornier Inc [id number] Tornier Aequalis Perform 25mm Reverse Shoulder Standard Baseplate - [id number] - [id number] Implanted:Qty: 1 on 05/30/2021 by Shant Vital MD at [facility] Right: Shoulder [employer] [id number] 04/09/2026 [id number] / [id number] / Local Plant Source [employer] Inc [id number] Aequalis Perform 7mm Reverse Screw Bone Sterile Latex Free - [id number] - [id number] Implanted:Qty: 1 on 05/30/2021 by Shant Vital MD at [facility] Right: Shoulder [employer] [id number] 05/03/2026 [id number] / [id number] / Tornier Inc [id number] Aequalis Perform Reversed 5mm 26mm Peripheral Glenoid Screw - [id number] Implanted:Qty: 1 on 05/30/2021 by Shant Vital MD at [facility] Right: Shoulder [employer] [id number] / / Tornier Inc [id number] Aequalis Perform Reversed 5mm 18mm Peripheral Glenoid Screw - [id number] Implanted:Qty: 1 on 05/30/2021 by Shant Vital MD at [facility] Right: Shoulder [employer] [id number] / / Tornier Inc [id number] Aequalis Perform Reversed 5mm 38mm Peripheral Glenoid Screw - [id number] Implanted:Qty: 1 on 05/30/2021 by Shant Vital MD at [facility] Right: Shoulder [employer] [id number] / / Tornier Inc [id number] Aequalis Perform Reversed 5mm 22mm Peripheral Glenoid Screw - [id number] Implanted:Qty: 1 on 05/30/2021 by Shant Vital MD at [facility] Right: Shoulder [employer] [id number] / / Tornier Inc [id number] Tornier Aequalis Perform 36mm Reverse Shoulder Standard Sphere - [id number] - [id number] Implanted:Qty: 1 on 05/30/2021 by Shant Vital MD at [facility] Right: Shoulder [employer] [id number] 04/01/2026 [id number] / [id number] / Insurance [facility] MEDICARE MEDICARE SOLUTIONS AETNA MEDICARE Advance Directives For more information, please contact: [phone] Documents on File Type Date Recorded Patient Associate Application Developer Expl anation ADVANCE DIRECTIVE 05/30/2021 7:42 AM * Full Code (Latest Code Status on File) Date Activated Date Inactivated Comments 05/30/2021 12:48 PM 05/31/2021 3:48 PM Care Teams Roll Cleaner Relationship Specialty Start Date End Date oRbinson Olivo MD [address] [facility] [address] [place] [address] PCP - General 02/11/17
--- OUTSIDE RECORDS SUMMARY | 2024-07-07 11:42 | XMS_ITS | Clinical Summary ---
Author Organization [facility] Address [address] [place] [address] Care Team Providers Care Shuttle Veneering Supervisor Name Role Phone Unavailable Primary Care Provider Unavailabl e Source Comments [facility],non-owned Affiliates and Associated Physician Practices is amultiple site organization consisting of ambulatory clinics and hospital sitesin [place], [place], [place] and [place]. This disclosure is being madepursuant to the Care Everywhere program and may not contain all information available regarding this patient. Last updated 18.[facility] [employer] Social History Tobacco Use Types Packs/Day Years Used Date Smoking Tobacco: Never Assessed Sex and Gender Information Value Date Recorded Sex Assigned at Not on file Gender Identity Not on file Sexual Orientation Not on file Plan of Treatment Health Maintenance Due Date Last Done Comments BONE DENSITY TESTING 1944 DTAP/TDAP/TD VACCINES (1 - Tdap) 10/10/1963 PNEUMOCOCCAL VACCINE 50+ (1 of 1 - PCV) 1994 ZOSTER VACCINE (1 of 2) 1994 Respiratory Syncytial Virus (RSV) Vaccine Pt: or over 60 yrs (1 - 1-dose 75+ series) 10/10/2019 COVID-19 VACCINE ( - 2023-2 5 season) 2023 INFLUENZA VACCINE (#1) 2023 DEPRESSION SCREENING 04/20/2024 MEDICARE AWV CALENDAR YEAR 2024 HEPATITIS B VACCINE Aged Out No longe r eligible based on patient's age to complete this topic HIB VACCINE Aged Out No longer eligi ble based on patient's age to complete this topic HPV VACCINE Aged Out No longer eligi ble based on patient's age to complete this topic MENINGOCOCCAL (Group B) VACC INE SHARED DECISION-MAKING Aged Out No longer eligibl e based on patient's age to complete this topic MENINGOCOCCAL GROUPS A/C/Y/W VACCINE Aged Out No longer eligible b ased on patient's age to complete this topic
--- OUTSIDE RECORDS SUMMARY | 2024-07-07 11:42 | XMS_ITS | Continuity of Care Document ---
Author Organization [facility] Address [address] [facility] [address] [place] [address] Phone Care Team Providers Care Air Conditioning Specialist Name Role Phone Branden Tinoco MD Unavailable Unavailable Allergies, Adverse Reactions, Alerts Substance Reaction Status Criticality CEPHALEXIN MONOHYDRATE Unknown(not reported) Active No Information CEFUROXIME AXETIL Active No Informa tion tetracycline Unknown Active No Information Medications Medication Instructions Dosage Effective Dates (start - stop) Status Comments clindamycin HCl 300 mg capsule take 1 capsule by oral route every 8 hours 300 MG - Active this was called in to [employer] this am also hydroxyzine HCl 25 mg tablet take 1 tablet by oral route 4 times every day as needed 25 MG - Active Synthroid 50 mcg tablet take 1 tablet by oral route every day 50 MCG - Active MELOXICAM (unknown strength) take 1 tablet by oral route every day with food Not Available - Active FLONASE (unknown strength) Not Available - Active ALBUTEROL SULFATE HFA (unknown strength) Not Available - Active Procedures Procedure Date POSTOP FOLLOW-UP VISIT POSTOP FOLLOW-UP VISIT POSTOP FOLLOW-UP VISIT OFFICE/OUTPATIENT VISIT EST OFFICE/OUTPATIENT VISIT EST OFFICE/OUTPATIENT VISIT NEW Advance Directives Directive Yes / No Effective Date File Name No Information Encounters Encounter Description Practice Location Reason(s) For Visit Diagnoses Date Provider Providers Copied on Encounter [facility], [address] [facility] [address], [place], [address], [place] tel:[phone] [facility] [place] Hammer toe of left foot 9 Earnest Otero. [address] [facility], [place], [place], [address] . tel: [phone] [facility], [address] [address], [place], [address], [place] tel:[phone] [facility] Hammer toe of left foot 8 Earnest Otero. [address] [facility] [facility] [address] [address], [place], [place], [address] . tel: [phone] [facility], [address] [address], [place], [address], [place] tel:[phone] [facility] Hammer toe of left foot 8 Earnest Otero. [address] [facility] [address] [address], [place], [place], [address] . tel: [phone] [facility], [address] [place] [address], [place], [address], [place] tel:[phone] [facility] No Information 8 Earnest Otero. [address] [facility] [address], [place], [place], [address] . tel: [phone] OFFICE/OUTPAT IENT VISIT EST [facility], [address] [place] [address], [place], [address], [place] tel:[phone] [facility] Hammer toe of left footHammer toe of right foot 8 Earnest Otero. [address] [facility], [place], [place], [address] . tel: [phone] Referring Provider: Margarita Willis [address], [place], [address]. tel:[phone] OFFICE/OUTPAT IENT VISIT EST [facility], [address] [place] [address], [place], [address], [place] tel:[phone] [facility] Hammer toe of left footMallet toe of left footMallet toe of right footBody mass index (BMI) 28.0-28.9, adult 8 Laurie Angulosse. [address] [place], [place], [address] . tel: [phone] Referring Provider: Robinson Martinez, [address], [place], [address]. tel:[phone] OFFICE/OUTPAT IENT VISIT [facility], [address] [facility] [address], [place], [address], tel:[phone] [facility] Left foot (chief complaint) Hallux valgus with bunions of left footHammer toe of left foot 6 Shoe Zandra. [address] [facility] [address], [place], [place], [address] . tel: [phone] Family History Family Member Type Diagnosis Age At Onset Brother Problem (finding) Alive and well Daughter Problem (finding) malignant neop lasm of breast in first degree relative Immunizations Vaccine Date Status Comments Pneumo (2 yrs or older)(PPV) administered Source: Other Provider Payers Payer name Insurance type Covered libertarian ID Briseyda gallo(s) [facility] Group Medicare Advantage OT [id number] Social History Type Description Quantity Date Captured Comments Alcohol Use Details Unknown Caffeine Use Details Unknown Tobacco Use Status No Information Smoking Status No Information Sex Female Chief Complaint And Reason For Visit No Information Reason For Referral Reason For Referral No Information Plan Of Treatment Date Type Action Status Referral Ordered: RADEX FOOT COMPL MINIMUM 3 VIEWS RT ordered Referral Ordered: RADEX FOOT COMPL MINIMUM 3 VIEWS LT ordered History Of Present Illness Encounter Date Complaint History Of Prese nt Illness Left foot Functional Status Date Functional Assessmen t No Information Instructions Date Instruction Additional Infor mation activity as tolerated Related to Hammer toe of left foot wear proper footwear as instruct ed Related to Hammer toe of left foot wear proper footwear as instruct ed Related to Hammer toe of left foot activity as tolerated Related to Hammer toe of left foot Avoid prolonged bed rest Related to Status post left foot surgery Ice as tolerated Related to Stat us post left foot surgery Watch for signs of infection Rel ated to Status post left foot surgery activity as tolerated Related to Hammer toe of left foot wear proper footwear as instruct ed Related to Hammer toe of left foot Weight monitoring Related to Bod y mass index (BMI) 28.0-28.9, adult activity as tolerated Related to Hammer toe of left foot wear proper footwear as instruct ed Related to Hammer toe of left foot wear proper footwear as instruct ed Related to Hallux valgus with bunions of left foot activity as tolerated Related to Hallux valgus with bunions of left foot Assessments Type Assessment Date assessment Hammer toe of left foot 019 Patient Care Teams Name Effective Dates (start - stop) Status Members No Information
--- OUTSIDE RECORDS SUMMARY | 2024-07-07 11:42 | XMS_ITS | Clinical Summary ---
Author Organization [facility] Address [facility] [place] [address] Care Team Providers Care Floor Coverer Apprentice Name Role Phone Unavailable Primary Care Provider Unavailabl e Social History Tobacco Use Types Packs/Day Years Used Date Smoking Tobacco: Never Assessed Comments Unknown Sex and Gender Information Value Date Recorded Sex Assigned at Not on file Legal Sex Female 7:37 PM CDT Gender Identity Not on file Sexual Orientation Not on file Plan of Treatment Health Maintenance Due Date Last Done Comments Hepatitis C 1962 DTaP, Tdap and Td Vaccines ( 1 - Tdap) 10/10/1963 Zoster Vaccines (1 of 2) 1994 Dexa Scan (General) 2009 Pneumococcal Vaccine: 65+ Ye ars (1 of 1 - PCV) 2009 RSV Immunization or 60+ Years (1 - 1-dose 75+ series) 10/10/2019 COVID-19 Vaccine (2023-2 5 season) 2023 Influenza Adult (#1) 2024 Meningococcal B Vaccine Aged Out No l onger eligible based on patient's age to complete this topic Meningococcal Vaccine Aged Out No angel carmen eligible based on patient's age to complete this topic RSV Immunizations Under 20 Months Aged Out No longer eligible based on patient's age to complete this topic
--- OUTSIDE RECORDS SUMMARY | 2024-07-07 11:42 | XMS_ITS | Encounter Summary ---
Author Organization [facility] Address [address] [facility] [address] Care Team Providers Care Ethanol Operations Manager Name Role Phone Unavailable Primary Care Provider Unavailabl e Encounter Details Date Type Department Care Team (Late st Contact Info) Description 04/27/2019 Lab Requisition [facility] DermPath Lab [address] [place] [phone] Soto Schumacher MD [address] [place] [address] Social History Tobacco Use Types Packs/Day Years Used Date Smoking Tobacco: Never Assessed Sex and Gender Information Value Date Recorded Sex Assigned at Not on file Gender Identity Not on file Sexual Orientation Not on file documented as of this encounter Plan of Treatment Not on file documented as of this encounter Procedures Procedure Name Priority Date/Time Associated Diagnosis Comments DERMATOPATHOLOGY Routine 04/26/2019 12:0 0 AM PRODUCTION TEAM MANAGER documented in this encounter Results * DERMATOPATHOLOGY (04/26/2019 12:00 AM PRODUCTION TEAM MANAGER) Case Report Dermatopathology Report Case: [id number] Authorizing Provider: Soto Schumacher MD Collected: 04/26/2019 12:00 AM Ordering Location: [facility] Lab Received: 04/27/2019 12:22 PM Pathologist: Henry Hines MD Specimen: Skin, left side neck 0 4:28 PM PRODUCTION TEAM MANAGER DERMATOPATHOLOGY LABORATORY Final Diagnosis Specimen A. SKIN, left side neck: LARGE CELL ACANTHOMA (D23.9) 0 4:28 PM PRODUCTION TEAM MANAGER DERMATOPATHOLOGY LABORATORY Clinical History R/O lentigo. 0 4:28 PM [facility] DERMATOPATHOLOGY LABORATORY Gross Description Specimen A: Received is one formalin filled container labeled with the patient's name and designated left side neck. The specimen consists of a shave biopsy measuring [id number]. Jar 0. 0 4:28 PM [facility] DERMATOPATHOLOGY LABORATORY Microscopic Description Specimen A. SKIN, left side neck: Sections show compact orthokeratosis with acanthosis composed of slightly larger keratinocytes with basal layer hyperpigmentation. 0 4:28 PM [facility] DERMATOPATHOLOGY LABORATORY Disclaimer An external and internal positive and negative controls are appropriate for the histochemical, immunohistochemical and immunofluorescence stain(s) in this case (if any), except where stated explicitly. The performance characteristics of the stain(s) cited in this report were developed and its performance characteristic determined by the Dermatopathology Laboratory at [facility], directed by Dr. Abby Hines. These tests need not be, and therefore are not, approved by the [place] Food and Drug Administration. The tests are used for clinical purposes. Billing Codes Specimen Charges Stain Charges 88247 1 0 4:28 PM [facility] DERMATOPATHOLOGY LABORATORY Embedded Images 0 4:28 PM [facility] DERMATOPATHOLOGY LABORATORY Pathology/Cytolog y TISSUE SPECIMEN FROM SKIN / Unknown 04/26/2019 04/27/2019 12:22 PM PRODUCTION TEAM MANAGER Soto Schumacher MD LAB - PATHOLOGY/CYTO LOGY ORDERABLES DERMATOPATHOLOGY LABORATORY [facility] - Department of Dermatology [address] [place] [address] 5th Floor Lab [address] [phone] documented in this encounter Visit Diagnoses Not on filedocumented in this encounter
--- OUTSIDE RECORDS SUMMARY | 2024-07-07 11:42 | XMS_ITS | Encounter Summary ---
Author Organization [facility] Address [address] [facility] [place] [address] Care Team Providers Care Photographic Enlarger Operator Name Role Phone Unavailable Primary Care Provider Unavailabl e Encounter Details Date Type Department Care Team (Late st Contact Info) Description 08/07/2021 Lab Requisition [facility] DermPath Lab [address] [place] [address] Soto Schumacher MD [address] [place] [address] Social History Tobacco Use Types [...] Priority Date/Time Associated Diagnosis Comments DERMATOPATHOLOGY Routine 08/06/2021 12:0 0 AM CDT documented in this encounter Results * DERMATOPATHOLOGY (08/06/2021 12:00 AM CDT) Case Report Dermatopathology Report Case: [id number] Authorizing Provider: Soto Schumacher MD Collected: 08/06/2021 12:00 AM Ordering Location: [facility] DermPath Lab Received: 08/07/2021 02:33 PM Pathologist: Henry Hines MD Specimens: A) - Skin, right inferior labia majora near perineum B) - Skin, lateral to left labia majora 5:40 PM CDT DERMATOPATHOLOGY LABORATORY Final Diagnosis Specimen A. SKIN, right inferior labia majora near perineum: EPIDERMOID CYST (L72.0) Specimen B. SKIN, lateral to left labia majora: BENIGN VERRUCOUS KERATOSIS (L82.1) 2 5:40 PM CDT DERMATOPATHOLOGY LABORATORY Clinical History A: R/O cyst vs other neoplasm. B: R/O ISK, inflamed nevus vs other. 2 5:40 PM CDT DERMATOPATHOLOGY LABORATORY Gross Description Specimen A: Received is one formalin filled container labeled with the patient's name and designated right inferior labia majora near perineum. The specimen consists of a punch biopsy measuring [id number], bisected. Jar 0. Specimen B: Received is one formalin filled container labeled with the patient's name and designated lateral to left labia majora. The specimen consists of a shave biopsy measuring [id number]. Jar 0. 2 5:40 PM CDT DERMATOPATHOLOGY LABORATORY Microscopic Description Specimen A. SKIN, right inferior labia majora near perineum: Within the dermis, there is a space lined by epithelium that resembles normal epidermis and the infundibular portion of the hair follicle. Specimen B. SKIN, lateral to left labia majora: Sections show hyperkeratosis, papillomatosis, hypergranulosis, and acanthosis. These histological findings can be seen in a condyloma acuminata or a seborrheic keratosis. 2 5:40 PM CDT DERMATOPATHOLOGY LABORATORY Disclaimer An external and internal positive and negative controls are appropriate for the histochemical, immunohistochemical and immunofluorescence stain(s) in this case (if any), except where stated explicitly. The performance characteristics of the stain(s) cited in this report were developed and its performance characteristic determined by the Dermatopathology Laboratory at [facility], directed by Dr. Abby Hines. These tests need not be, and therefore are not, approved by the [place] Food and Drug Administration. The tests are used for clinical purposes. Billing Codes Specimen Charges Stain Charges 15284 44675 1 1 2 5:40 PM CDT DERMATOPATHOLOGY LABORATORY Embedded Images 2 5:40 PM CDT DERMATOPATHOLOGY LABORATORY Pathology/Cytology TISSUE SPECIMEN FROM SKIN / Unknown 08/06/2021 08/07/2021 2:33 PM CDT Miscellaneous samples (specimen) TISSUE SPECIMEN FROM SKIN / Unknown 08/06/2021 08/07/2021 2:33 PM CDT Soto Schumacher MD LAB - PATHOLOGY/CYTO LOGY ORDERABLES DERMATOPATHOLOGY LABORATORY [facility] - Department of Dermatology [facility] Specialized Medicine [address] [place] [address], [address] Floor [address] [phone] documented in this encounter Visit Diagnoses Not on filedocumented in this encounter
--- OUTSIDE RECORDS SUMMARY | 2024-07-07 11:42 | XMS_ITS | Encounter Summary ---
Author Organization [facility] Address [address] [place] [address] Care Team Providers Care Press Clipper Name Role Phone Unavailable Primary Care Provider Unavailabl e Encounter Details Date Type Department Care Team (Late st Contact Info) Description 08/06/2023 Lab Requisition [facility] Derm[facility] Lab [address] [place] [phone] Yelitza Jeffrey MD [address] [place] [address] Neoplasm of uncertain behavior of skin Social History Tobacco Use Types Packs/Day Years Used Date Smoking Tobacco: Never Assessed Sex and Gender Information Value Date Recorded Sex Assigned at Not on file Gender Identity Not on file Sexual Orientation Not on file documented as of this encounter Plan of Treatment Not on file documented as of this encounter Procedures Procedure Name Priority Date/Time Associated Diagnosis Comments DERMATOPATHOLOGY Routine 08/06/2023 3:33 AM CDT Neoplasm of uncertain behavior of skin documented in this encounter Results * DERMATOPATHOLOGY (08/06/2023 3:33 AM CDT) Case Report Dermatopathology Report Case: [id number] Authorizing Provider: Yelitza Jeffrey MD Collected: 08/06/2023 03:33 AM Ordering Location: [facility] - Received: 08/07/2023 01:58 PM DermPath Lab Pathologist: Estella Pal MD Specimen: Skin, left superior parietal scalp 1:30 PM CDT DERMATOPATHOLOGY LABORATORY Final Diagnosis Specimen A. SKIN, left superior parietal scalp: HYPERPLASTIC (HYPERTROPHIC) ACTINIC KERATOSIS (L57.0) (see microscopic description) 1:30 PM CDT DERMATOPATHOLOGY LABORATORY Clinical History Basal Cell Carcinoma vs Irritated Seborrheic Keratosis 1:30 PM CDT DERMATOPATHOLOGY LABORATORY Gross Description Specimen A: Received is one formalin filled container labeled with the patient's name and designated left superior parietal scalp. The specimen consists of a shave biopsy measuring 7x6x1 mm. Jar 0. 1:30 PM CDT DERMATOPATHOLOGY LABORATORY Microscopic Description Specimen A. SKIN, left superior parietal scalp: There is hyperkeratosis alternating with neutrophilic parakeratosis. There is epidermal hyperplasia with disorderly maturation of keratinocytes with nuclear pleomorphism confined to the lower half of the epidermis. Grocott's methenamine silver (GMS) stain is negative for fungal elements in the sections examined. Additional deeper sections were obtained and reviewed. 1:30 PM CDT DERMATOPATHOLOGY LABORATORY Disclaimer An external and internal positive and negative controls are appropriate for the histochemical, immunohistochemical and immunofluorescence stain(s) in this case (if any), except where stated explicitly. The performance characteristics of the stain(s) cited in this report were developed and its performance characteristic determined by the Dermatopathology Laboratory at [facility], directed by Dr. Abby Hines. These tests need not be, and therefore are not, approved by the [place] Food and Drug Administration. The tests are used for clinical purposes. Billing Codes Specimen Charges Stain Charges 16253 1 49771 1 1:30 PM CDT DERMATOPATHOLOGY LABORATORY Embedded Images 1:30 PM CDT DERMATOPATHOLOGY LABORATORY Pathology/Cytolo gy TISSUE SPECIMEN FROM SKIN / Unknown 08/06/2023 3:33 AM CDT 08/07/2023 1:58 PM CDT Yelitza Jeffrey MD LAB - PATHOLOGY/CYTO LOGY ORDERABLES DERMATOPATHOLOGY LABORATORY [facility] - Department of Dermatology [address], [address] [phone] documented in this encounter Visit Diagnoses Diagnosis Neoplasm of uncertain behavior of skin documented in this encounter
[2024-07-07 12:01] LABS: Influenza A QL RT-PCR Negative (Negative); Influenza B QL RT-PCR Negative (Negative); RSV RNA, RT-PCR Negative (Negative); SARS-CoV-2 RNA PCR Negative (Negative)
== END 2024-07-07 10:50 | disposition home or self-care (01) ==
LOC: ANHLAB 10:51
PROVIDERS: PCP Family Medicine; Visit Provider Physician Assistant
DX: J02.9 Acute pharyngitis, unspecified (principal); Z20.822 Contact with and (suspected) exposure to COVID-19
CPT/HCPCS: 87637

== ENCOUNTER 2024-07-19 13:42 | Outpatient (CLI) | payer MEDICARE, SELFPAY ==
--- NOTE | ~2024-07-19 | US_ITS ---
US soft tissue chest 07/19/2024 14:18 Indication: Protrusion of left chest inferior to the breast. Procedure: High-resolution Limited soft tissue ultrasound of the left chest in the area of palpable c oncern Comparison: No prior studies for comparison. Findings: Normal heterogeneous soft tissues without focal solid or or cystic mass. Impression: 1: Normal limited soft tissue ultrasound of the left chest. No mass. Reviewed, dictated and finalized at location A. Impression: 1: Normal limited soft tissue ultrasound of the left chest. No mass.
--- OUTSIDE RECORDS SUMMARY | 2024-07-19 14:55 | XMS_ITS | Continuity of Care Document ---
Author Organization [facility] Address [address] [facility] [address] [place] [address] Phone Care Team Providers Care Early Childhood Name Role Phone Branden Tinoco MD Unavailable [...] - Active this was called in to [employer] this am also hydroxyzine HCl 25 mg [...] Diagnoses Date Provider Providers Copied on Encounter [facility], [address] [facility], [place], [address], [place] tel:[phone] [facility] [place] Hammer toe of left foot 9 Earnest Otero. [address] [facility] [address], [place], [place], [address] . tel: [phone] [facility], [address] [address], [place], [address], [place] tel:[phone] [facility] Hammer toe of left foot 8 Earnest Otero. [address] [facility] [address], [place], [place], [address] . tel: [phone] [facility], [address] [address], [place], [address], [place] tel:[phone] [facility] Hammer toe of left foot 8 Earnest Otero. [address] [facility] [address], [place], [place], [address] . tel: [phone] [facility], [address] [place] [address], [place], [address], [place] tel:[phone] [facility] No Information 8 Earnest Otero. [address] [facility] [address], [place], [place], [address] . tel: [phone] OFFICE/OUTPAT IENT VISIT EST [facility], [address] [place] [address], [place], [address], [place] tel:[phone] [facility] Hammer toe of left footHammer toe of right foot 8 Earnest Otero. [address] [facility] [address], [place], [place], [address] . tel: [phone] Referring Provider: Margarita Willis [address], [place], [address]. tel:[phone] OFFICE/OUTPAT IENT VISIT EST [facility], [address] [place] [address], [place], [address], [place] tel:[phone] [facility] Hammer toe of left footMallet toe of left footMallet toe of right footBody mass index (BMI) 28.0-28.9, adult 8 Laurei Angulosse. [address] [place], [place], [address] . tel: [phone] Referring Provider: Robinson Heath, [address], [place], [address]. tel:[phone] OFFICE/OUTPAT IENT VISIT [facility], [address] [facility] [address], [place], [address], tel:[phone] [facility] Left foot (chief complaint) Hallux valgus with bunions of left footHammer toe of left foot 6 Shoe Zandra. [address] [facility] [address], [place], [place], [address] . tel: [phone] Family History Family Member Type Diagnosis Age At Onset Brother Problem (finding) Alive and well Daughter Problem (finding) malignant neop lasm of breast in first degree relative Immunizations Vaccine Date Status Comments Pneumo (2 yrs or older)(PPV) administered Source: Other Provider Payers Payer name Insurance type Covered constitution party ID Briseyda gallo(s) [facility] Group Medicare Advantage OT [id number] Social History Type Description Quantity Date [...]
--- OUTSIDE RECORDS SUMMARY | 2024-07-19 14:55 | XMS_ITS | Encounter Summary ---
Author Organization [facility] Address [address] [facility] [place] [address] Care Team Providers Care Acoustical Logging Engineer Name Role Phone Unavailable Primary Care Provider Unavailabl e Encounter Details Date Type Department Care Team (Late st Contact Info) Description 04/27/2019 Lab Requisition [facility] [address] [place] [id number] Soto Schumacher MD [address] [place] [address] Social History Tobacco Use Types [...] Comments DERMATOPATHOLOGY Routine 04/26/2019 12:0 0 AM CLOTH TESTER documented in this encounter Results * DERMATOPATHOLOGY (04/26/2019 12:00 AM CLOTH TESTER) Case Report Dermatopathology Report Case: [id number] Authorizing Provider: Soto Schumacher MD Collected: 04/26/2019 12:00 AM Ordering Location: [facility] Received: 04/27/2019 12:22 PM Pathologist: Henry Hines MD Specimen: Skin, left side neck 0 4:28 PM CLOTH TESTER DERMATOPATHOLOGY LABORATORY Final Diagnosis Specimen A. SKIN, left side neck: LARGE CELL ACANTHOMA (D23.9) 0 4:28 PM CLOTH TESTER DERMATOPATHOLOGY LABORATORY Clinical History R/O lentigo. 0 4:28 PM [facility] Gross Description Specimen A: Received is one formalin filled container labeled with the patient's name and designated left side neck. The specimen consists of a shave biopsy measuring [id number]. Jar 0. 0 4:28 PM [facility] Microscopic Description Specimen A. SKIN, left side neck: Sections show compact orthokeratosis with acanthosis composed of slightly larger keratinocytes with basal layer hyperpigmentation. 0 4:28 PM [facility] Disclaimer An external and internal positive and negative controls are appropriate for the histochemical, immunohistochemical and immunofluorescence stain(s) in this case (if any), except where stated explicitly. The performance characteristics of the stain(s) cited in this report were developed and its performance characteristic determined by the Dermatopathology Laboratory at [facility], directed by Dr. Abby Hines. These tests need not be, and therefore are not, approved by the [place] Food and Drug Administration. The tests are used for clinical purposes. Billing Codes Specimen Charges Stain Charges 34291 1 0 4:28 PM [facility] Embedded Images 0 4:28 PM [facility] Pathology/Cytolog y TISSUE SPECIMEN FROM SKIN / Unknown 04/26/2019 04/27/2019 12:22 PM CLOTH TESTER Soto Schumacher MD LAB - PATHOLOGY/CYTO LOGY ORDERABLES DERMATOPATHOLOGY LABORATORY [facility] - Department of Dermatology [address] [place] [address] 5th Floor Lab [address] [phone] documented in this encounter Visit Diagnoses Not on filedocumented in this encounter
--- OUTSIDE RECORDS SUMMARY | 2024-07-19 14:55 | XMS_ITS | Referral Summary ---
Author Organization [facility] Address [address] [place] [address] Care Team Providers Care Rubber Goods Supervisor Name Role Phone Robinson Olivo MD Primary [...] 1 tablet (88 mcg total) by mouth gift shop clerk before breakfast 1 Active vitamins A,C,E-zinc-adrian er (ICAPS) 14,320-226-200 cbaw-de-gnxa capsuleIndicati ons:Vitamin Deficiency Take 1 capsule by [...] (04/02/2021): Added automatically from request for surgery [id number] Axillary lymphadenopathy 05/16/2019 History of breast cancer [...] on file Legal Sex Female 2:32 AM LAWYER REAL ESTATE Gender Identity Not on file Sexual Orientation Not on file Last Filed Vital Signs Vital Sign Reading Time Taken Comments Blood Pressure 122/67 05/31/2021 8:00 AM LAWYER REAL ESTATE Pulse 90 05/31/2021 8:00 AM LAWYER REAL ESTATE Temperature 36.1 C (97 F) 05/31/2021 8:00 AM LAWYER REAL ESTATE Respiratory Rate 18 2023 11:09 AM CDT Oxygen Saturation 93% 05/31/2021 9:00 AM LAWYER REAL ESTATE Inhaled Oxygen Concentration - - Weight 77.1 kg (170 lb) 2023 11:09 AM CDT Height 162.6 cm (5' 4 ) 2023 11:09 AM CDT Body Mass Index 29.18 2023 11:09 AM CDT Plan of Treatment Not on file Medical Devices Implanted Type Area Mechanical Cad Designer Device Identifier Shelf Expiration Date Model / Serial / Lot Screws,Plates Bilateral: Ankle [employer] [id number] Latitude 8-15mm Restrictor Elbow Restrictor Cement - [id number] - [id number] Implanted:Qty: 1 on 05/30/2021 by Shant Vital MD at [facility] Right: Shoulder [employer] [id number] 02/02/2025 [id number] / [id number] / [employer] Dwx2pl Stem Perform Sz 2 Plus Humeral Long - [id number] - [id number] Implanted:Qty: 1 on 05/30/2021 by Shant Vital MD at [facility] Right: Shoulder [employer] [id number] 09/07/2025 [id number] / [id number] / [employer] [id number] Insert Perform 10 Deg [id number] - [id number] - [id number] Implanted:Qty: 1 on 05/30/2021 by Shant Vital MD at [facility] Right: Shoulder [employer] [id number] 02/18/2026 [id number] / [id number] / [employer] 6191-1-010 Simplex P Radiopaque Full Dose Cement Bone Sterile - [id number] Implanted:Qty: 1 on 05/30/2021 by Shant Vital MD at [facility] Right: Shoulder [employer] 06/18/2023 6191-1-01 0 / / [id number] [employer] [id number] Tornier Aequalis Perform 25mm Reverse Shoulder Standard Baseplate - [id number] - [id number] Implanted:Qty: 1 on 05/30/2021 by Shant Vital MD at [facility] Right: Shoulder [employer] [id number] 04/09/2026 SHY710 / [id number] / [employer] Tfx574 Aequalis Perform 7mm Reverse Screw Bone Sterile Latex Free - [id number] - [id number] Implanted:Qty: 1 on 05/30/2021 by Shant Vital MD at [facility] Right: Shoulder [employer] [id number] 05/03/2026 [id number] / [id number] / [employer] [id number] Aequalis Perform Reversed 5mm 26mm Peripheral Glenoid Screw - [id number] Implanted:Qty: 1 on 05/30/2021 by Shant Vital MD at [facility] Right: Shoulder [employer] [id number] / / [employer]ier [employer] [id number] Aequalis Perform Reversed 5mm 18mm Peripheral Glenoid Screw - [id number] Implanted:Qty: 1 on 05/30/2021 by Shant Vital MD at [facility] Right: Shoulder [employer] [id number] / / [employer]ier [employer] [id number] Aequalis Perform Reversed 5mm 38mm Peripheral Glenoid Screw - [id number] Implanted:Qty: 1 on 05/30/2021 by Shant Vital MD at [facility] Right: Shoulder [employer] [id number] / / [employer]ier [employer] [id number] Aequalis Perform Reversed 5mm 22mm Peripheral Glenoid Screw - [id number] Implanted:Qty: 1 on 05/30/2021 by Shant Vital MD at [facility] Right: Shoulder [employer] [id number] / / Tornier Inc [id number] Tornier Aequalis Perform 36mm Reverse Shoulder Standard Sphere - [id number] - [id number] Implanted:Qty: 1 on 05/30/2021 by Shant Vital MD at [facility] Right: Shoulder [employer] [id number] 04/01/2026 [id number] / [id number] / Insurance A[employer] MEDICARE UHC MEDICARE ADVANTAGE AETNA MEDICARE Advance Directives For more information, please contact: [phone] Documents on File Type Date Recorded Patient Care Asst Expl anation ADVANCE DIRECTIVE 05/30/2021 7:42 AM * Full Code (Latest Code Status on File) Date Activated Date Inactivated Comments 05/30/2021 12:48 PM 05/31/2021 3:48 PM Care Teams Rubber Goods Supervisor Relationship Specialty Start Date End Date Robinson Olivo MD [address] [facility] [address] [place] [address] PCP - General 02/11/17
--- OUTSIDE RECORDS SUMMARY | 2024-07-19 14:55 | XMS_ITS | Encounter Summary ---
Author Organization [facility] Address [address] [place] [address] Care Team Providers Care Sharepoint Engineer Name Role Phone Unavailable Primary Care Provider Unavailabl e Encounter Details Date Type Department Care Team (Late st Contact Info) Description 08/06/2023 Lab Requisition [facility] Lab [address] [place] [phone] Yelitza Jeffrey MD [address] [place] [address] Neoplasm of uncertain behavior of [...] AM CDT) Case Report Dermatopathology Report Case: [id number] Authorizing Provider: Yelitza Jeffrey MD Collected: 08/06/2023 03:33 AM Ordering Location: [facility] - Received: 08/07/2023 01:58 PM [...] characteristic determined by the Dermatopathology Laboratory at [facility], directed by Dr. Abby Hines. These tests need not be, and therefore are not, approved by the [place] Food and Drug Administration. The tests are used for clinical purposes. Billing Codes Specimen Charges Stain Charges 35490 1 92464 1 1:30 PM CDT DERMATOPATHOLOGY LABORATORY Embedded Images 1:30 PM CDT DERMATOPATHOLOGY LABORATORY Pathology/Cytolo gy TISSUE SPECIMEN FROM SKIN / Unknown 08/06/2023 3:33 AM CDT 08/07/2023 1:58 PM CDT Yelitza Jeffrey MD LAB - PATHOLOGY/CYTO LOGY ORDERABLES DERMATOPATHOLOGY LABORATORY [facility] - Department of Dermatology [address], [address] [phone] documented in this encounter Visit Diagnoses Diagnosis Neoplasm of uncertain behavior of skin documented in this encounter
--- OUTSIDE RECORDS SUMMARY | 2024-07-19 14:55 | XMS_ITS | Clinical Summary ---
Author Organization [facility] Address [address] [facility] [place] [address] Care Team Providers Care Department Of Sociology Chair Name Role Phone Unavailable Primary Care Provider Unavailabl e Source Comments [facility],non-owned Affiliates and Associated Physician Practices is amultiple site organization consisting of ambulatory clinics and hospital sitesin [place], [place], [place] and [place]. This disclosure is being madepursuant to the Care Everywhere program and may not contain all information available regarding this patient. Last updated 18.[facility] Social History Tobacco Use Types Packs/Day Years [...]
--- OUTSIDE RECORDS SUMMARY | 2024-07-19 14:55 | XMS_ITS | Clinical Summary ---
Author Organization [facility] Address [address] [place] [address] Care Team Providers Care Oil Well Service Operator Helper Name Role Phone Robinson Olivo MD Primary [...] 1 tablet (88 mcg total) by mouth toy assembly supervisor before breakfast 1 Active vitamins A,C,E-zinc-adrian er (ICAPS) 14,320-226-200 qgwg-wg-ozjk capsuleIndicati ons:Vitamin Deficiency Take 1 capsule by [...] (04/02/2021): Added automatically from request for surgery [id number] Axillary lymphadenopathy 05/16/2019 History of breast cancer [...] on file Legal Sex Female 2:32 AM DIRECTOR WOMEN Gender Identity Not on file Sexual Orientation Not on file Obstetrics History Last Filed Vital Signs Vital Sign Reading Time Taken Comments Blood Pressure 122/67 05/31/2021 8:00 AM DIRECTOR WOMEN Pulse 90 05/31/2021 8:00 AM DIRECTOR WOMEN Temperature 36.1 C (97 F) 05/31/2021 8:00 AM DIRECTOR WOMEN Respiratory Rate 18 2023 11:09 AM CDT Oxygen Saturation 93% 05/31/2021 9:00 AM DIRECTOR WOMEN Inhaled Oxygen Concentration - - Weight 77.1 [...] 06/16/2026 06/16/2016 Medical Devices Implanted Type Area Pinking Sewing Machine Operator Device Identifier Shelf Expiration Date Model / Serial / Lot Screws,Plates Bilateral: Ankle [employer] Inc Dkt106 Latitude 8-15mm Restrictor Elbow Restrictor Cement - [id number] - [id number] Implanted:Qty: 1 on 05/30/2021 by Shant Vital MD at [facility] Right: Shoulder [employer] [id number] 02/02/2025 DTF206 / [id number] / [employer] Dwx2pl Stem Perform Sz 2 Plus Humeral Long - [id number] - [id number] Implanted:Qty: 1 on 05/30/2021 by Shant Vital MD at [facility] Right: Shoulder [employer] [id number] 09/07/2025 DWX2PL / [id number] / Me[employer]edia [employer] [id number] Insert Perform 10 Deg Ecw1859 - [id number] - [id number] Implanted:Qty: 1 on 05/30/2021 by Shant Vital MD at [facility] Right: Shoulder [employer]tron[employer] [id number] 02/18/2026 [id number] / [id number] / [employer] 6191-1-010 Simplex P Radiopaque Full Dose Cement Bone Sterile - [id number] Implanted:Qty: 1 on 05/30/2021 by Shant Vital MD at [facility] Right: Shoulder [employer] 06/18/2023 6191-1-01 0 / / [id number] Tornier Inc Oxl905 Tornier Aequalis Perform 25mm Reverse Shoulder Standard Baseplate - [id number] - [id number] Implanted:Qty: 1 on 05/30/2021 by Shant Vital MD at [facility] Right: Shoulder Intronis [id number] 04/09/2026 [id number] / [id number] / Flared3D [employer] Inc Nmj527 Aequalis Perform 7mm Reverse Screw Bone Sterile Latex Free - [id number] - [id number] Implanted:Qty: 1 on 05/30/2021 by Shant Vital MD at [facility] Right: Shoulder [employer] Inc [id number] 05/03/2026 [id number] / [id number] / Tornier Inc Lav857 Aequalis Perform Reversed 5mm 26mm Peripheral Glenoid Screw - [id number] Implanted:Qty: 1 on 05/30/2021 by Shant Vital MD at [facility] Right: Shoulder [employer] BSL102 / / Tornier Inc Imu524 Aequalis Perform Reversed 5mm 18mm Peripheral Glenoid Screw - [id number] Implanted:Qty: 1 on 05/30/2021 by Shant Vital MD at [facility] Right: Shoulder [employer] JSO518 / / Tornier Inc [id number] Aequalis Perform Reversed 5mm 38mm Peripheral Glenoid Screw - [id number] Implanted:Qty: 1 on 05/30/2021 by Shant Vital MD at [facility] Right: Shoulder [employer] [id number] / / Tornier Inc [id number] Aequalis Perform Reversed 5mm 22mm Peripheral Glenoid Screw - [id number] Implanted:Qty: 1 on 05/30/2021 by Shant Vital MD at [facility] Right: Shoulder [employer] MAN869 / / Tornier Inc [id number] Tornier Aequalis Perform 36mm Reverse Shoulder Standard Sphere - [id number] - [id number] Implanted:Qty: 1 on 05/30/2021 by Shant Vital MD at [facility] Right: Shoulder [employer] [id number] 04/01/2026 LDZ034 / [id number] / Insurance [facility] MEDICARE [facility] MEDICARE Address: [facility] [id number] [place] [id number] UHC MEDICARE ADVANTAGE AETNA MEDICARE Advance Directives For more information, please contact: [phone] Documents on File Type Date Recorded Patient Ticketer Expl anation ADVANCE DIRECTIVE 05/30/2021 7:42 AM * Full Code (Latest Code Status on File) Date Activated Date Inactivated Comments 05/30/2021 12:48 PM 05/31/2021 3:48 PM Care Teams Oil Well Service Operator Helper Relationship Specialty Start Date End Date Robinson Olivo MD [address] [facility] [address] [place] [address] PCP - General 02/11/17
--- OUTSIDE RECORDS SUMMARY | 2024-07-19 14:55 | XMS_ITS | Continuity of Care Document ---
Author Organization [facility] Address [address] [facility] utive [facility] [address] [place] [address] Phone Care Team Providers Care Ethylbenzene Converter Operator Name Role Phone Taylor OD, Karri Unavailable Unavailable Procedures Procedure Date Office/outpatient Visit, [facility] Advance Directives Directive Yes / No Effective Date File Name No Information Encounters Encounter Description Practice Location Reason(s) For Visit Diagnoses Date Provider Providers Copied on Encounter Office/outpat ient Visit, [facility], [address], [place], [place], [id number], [place] tel:[phone] [facility] No Information Jun-0 1-200 7 Taylor OD Karri. [address] , [address], [place], [address], [place]. tel:[phone] Family History Family Member Type Diagnosis Age At Onset No Information Payers Payer name Insurance type Covered democrat ID Authoriza tion(s) No Information Social History [...]
--- OUTSIDE RECORDS SUMMARY | 2024-07-19 14:55 | XMS_ITS | Clinical Summary ---
Author Organization [facility] Address [facility] [place] [address] Care Team Providers Care Eligibility Clerk Name Role Phone Unavailable Primary Care Provider [...]
--- OUTSIDE RECORDS SUMMARY | 2024-07-19 14:55 | XMS_ITS | Encounter Summary ---
Author Organization [facility] Address [address] [place] [address] Care Team Providers Care Agricultural Engineering Technologist Name Role Phone Unavailable Primary Care Provider Unavailabl e Encounter Details Date Type Department Care Team (Late st Contact Info) Description 08/07/2021 Lab Requisition [facility] [address] [place] [address] Soto Schumacher MD [address] [place] [address] Social History Tobacco Use Types [...] AM CDT) Case Report Dermatopathology Report Case: [id number] Authorizing Provider: Soto Schumacher MD Collected: 08/06/2021 12:00 AM Ordering Location: [facility] Received: 08/07/2021 02:33 PM [...] specimen consists of a punch biopsy measuring [id number], bisected. Jar 0. Specimen B: Received is one formalin filled container labeled with the patient's name and designated lateral to left labia majora. The specimen consists of a shave biopsy measuring [id number]. Jar 0. 2 5:40 PM CDT DERMATOPATHOLOGY [...] characteristic determined by the Dermatopathology Laboratory at [facility], directed by Dr. Abby Hines. These tests need not be, and therefore are not, approved by the [place] Food and Drug Administration. The tests are used for clinical purposes. Billing Codes Specimen Charges Stain Charges 49590 27209 1 1 2 5:40 PM CDT DERMATOPATHOLOGY LABORATORY Embedded Images 2 5:40 PM CDT DERMATOPATHOLOGY LABORATORY Pathology/Cytology TISSUE SPECIMEN FROM SKIN / Unknown 08/06/2021 08/07/2021 2:33 PM CDT Miscellaneous samples (specimen) TISSUE SPECIMEN FROM SKIN / Unknown 08/06/2021 08/07/2021 2:33 PM CDT Soto Schumacher MD LAB - PATHOLOGY/CYTO LOGY ORDERABLES DERMATOPATHOLOGY LABORATORY [facility] - Department of Dermatology [facility] [address] [place] [address], [address]rd Floor [address] [phone] documented in this encounter Visit Diagnoses Not on filedocumented in this encounter
== END 2024-07-19 13:43 | disposition home or self-care (01) ==
PROVIDERS: PCP Family Medicine; Visit Provider Physician Assistant Medical
DX: R22.2 Localized swelling, mass and lump, trunk (principal)
CPT/HCPCS: 76604

== ENCOUNTER 2024-09-27 08:36 | Outpatient (CLI) | payer MEDICARE, SELFPAY ==
--- NOTE | ~2024-09-27 | US_ITS ---
ULTRASOUND ANKLE BRACHIAL INDEX Ordering provider: Dee Valentin PA-C History: . I73.9 - Peripheral vascular disease, unspecified . Comparison: None. FINDINGS: Right brachial systolic blood pressure: 114 mmHg Left brachial systolic blood pressure: 116 mmHg Right ankle systolic blood pressure: 129 mmHg Left ankle systolic blood pressure: 141 mmHg Right ankle/arm index (KESHA): 1.11. Left ankle/arm index (KESHA): 1.22. Note regarding KESHA: --Normal= 1.0 or slightly greater. --Claudication (moderate stenosis or occlusive state)= 0.6 to 0.9. --Rest pain (severe occlusive states)= 0.5 or less. IMPRESSION: Normal bilaterally. Reviewed, dictated and finalized at location A. IMPRESSION: Normal bilaterally.
--- OUTSIDE RECORDS SUMMARY | 2024-09-27 08:54 | XMS_ITS | Clinical Summary ---
Author Organization [facility] Address [address] [place] [address] Care Team Providers Care Infrastructure Architect Name Role Phone Unavailable Primary Care Provider Unavailabl e Source Comments [facility],non-owned Affiliates and Associated Physician Practices is amultiple site organization consisting of ambulatory clinics and hospital sitesin [place], [place], [place] and [place]. This disclosure is being madepursuant to the Care Everywhere program and may not contain all information available regarding this patient. Last updated 18.[facility] Social History Tobacco Use Types Packs/Day Years Used Date Smoking Tobacco: Never Assessed Comments Unknown Sex and Gender Information Value Date Recorded Sex Assigned at Not on file Legal Sex Female 12:14 PM CONSULTING SOLUTION MANAGER Gender Identity Not on file Sexual Orientation [...] VACCINE ( - 2023-2 5 season) 2023 DEPRESSION SCREENING 04/20/2024 MEDICARE AWV CALENDAR YEAR 2024 INFLUENZA VACCINE (Season Ended) 2024 HEPATITIS B VACCINE Aged Out No [...] on patient's age to complete this topic Insurance [facility] [place] [address] [facility] MEDICARE ADV
--- OUTSIDE RECORDS SUMMARY | 2024-09-27 08:54 | XMS_ITS | Encounter Summary ---
Author Organization [facility] Address [address] [place] [address] Care Team Providers Care Rotary Pump Operator Name Role Phone Unavailable Primary Care Provider Unavailabl e Encounter Details Date Type Department Care Team (Late st Contact Info) Description 04/27/2019 Lab Requisition [facility] DermPath Lab [address] [place] [address] Soto Schumacher MD [address] [place] [address] Social History Tobacco Use Types Packs/Day Years Used Date Smoking Tobacco: Never Assessed Comments Unknown Sex and Gender Information Value Date Recorded Sex Assigned at Not on file Legal Sex Female 12:14 PM AFFILIATE MANAGER Gender Identity Not on file Sexual Orientation Not on file documented as of this encounter Plan of Treatment Not on file documented as of this encounter Procedures Procedure Name Priority Date/Time Associated Diagnosis Comments DERMATOPATHOLOGY Routine 04/26/2019 12:0 0 AM AFFILIATE MANAGER documented in this encounter Results * DERMATOPATHOLOGY (04/26/2019 12:00 AM AFFILIATE MANAGER) Case Report Dermatopathology Report Case: [id number] Authorizing Provider: Soto Schumacher MD Collected: 04/26/2019 12:00 AM Ordering Location: [facility] DermPath Lab Received: 04/27/2019 12:22 PM Pathologist: Henry Hines MD Specimen: Skin, left side neck 0 4:28 PM AFFILIATE MANAGER DERMATOPATHOLOGY LABORATORY Final Diagnosis Specimen A. SKIN, left side neck: LARGE CELL ACANTHOMA (D23.9) 0 4:28 PM AFFILIATE MANAGER DERMATOPATHOLOGY LABORATORY at 1628 AFFILIATE MANAGER Clinical History R/O lentigo. 0 4:28 PM [facility] DERMATOPATHOLOGY LABORATORY Gross Description Specimen A: Received is one formalin filled container labeled with the patient's name and designated left side neck. The specimen consists of a shave biopsy measuring [id number]. Jar 0. 0 4:28 PM [facility] DERMATOPATHOLOGY LABORATORY Microscopic Description Specimen A. SKIN, left side neck: Sections show compact orthokeratosis with acanthosis composed of slightly larger keratinocytes with basal layer hyperpigmentation. 0 4:28 PM [facility] DERMATOPATHOLOGY LABORATORY Disclaimer An external and internal positive and negative controls are appropriate for the histochemical, immunohistochemical and immunofluorescence stain(s) in this case (if any), except where stated explicitly. The performance characteristics of the stain(s) cited in this report were developed and its performance characteristic determined by the Dermatopathology Laboratory at [facility], directed by Dr. Abby Hines. These tests need not be, and therefore are not, approved by the [place] Food and Drug Administration. The tests are used for clinical purposes. Billing Codes Specimen Charges Stain Charges 19372 1 0 4:28 PM [facility] DERMATOPATHOLOGY LABORATORY Embedded Images 0 4:28 PM [facility] DERMATOPATHOLOGY LABORATORY Pathology/Cytolog y TISSUE SPECIMEN FROM SKIN / Unknown 04/26/2019 04/27/2019 12:22 PM AFFILIATE MANAGER Soto Schumacher MD LAB - PATHOLOGY/CYTOLOGY ORD ERABLES Final Result DERMATOPATHOLOGY LABORATORY [facility] - Department of Dermatology [facility] [facility], 5th [place] [address], [facility] [phone] documented in this encounter Visit Diagnoses Not on filedocumented in this encounter
--- OUTSIDE RECORDS SUMMARY | 2024-09-27 08:54 | XMS_ITS | Encounter Summary ---
Author Organization [facility] Address [address] [place] [address] Care Team Providers Care Blower Blast Furnace Name Role Phone Unavailable Primary Care Provider Unavailabl e Encounter Details Date Type Department Care Team (Late st Contact Info) Description 08/07/[address] 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 DermPath Lab Received: 08/07/2021 02:33 PM Pathologist: [...] (L82.1) 2 5:40 PM CDT DERMATOPATHOLOGY LABORATORY at 1740 CDT Clinical History A: R/O cyst vs other neoplasm. B: R/O ISK, inflamed nevus vs other. 2 5:40 PM CDT DERMATOPATHOLOGY LABORATORY Gross Description Specimen A: Received is one formalin filled container labeled with the patient's name and designated right inferior labia majora near perineum. The specimen consists of a punch biopsy measuring [id number], bisected. Jar 0. Specimen B: Received is one formalin filled container labeled with the patient's name and designated lateral to left labia majora. The specimen consists of a shave biopsy measuring [id number]. Jar 0. 2 5:40 PM CDT DERMATOPATHOLOGY [...] characteristic determined by the Dermatopathology Laboratory at [facility], directed by Dr. Abby Hines. These tests need not be, and therefore are not, approved by the [place] Food and Drug Administration. The tests are used for clinical purposes. Billing Codes Specimen Charges Stain Charges 51059 51735 1 1 2 5:40 PM CDT DERMATOPATHOLOGY LABORATORY Embedded Images 2 5:40 PM CDT DERMATOPATHOLOGY LABORATORY Pathology/Cytology TISSUE SPECIMEN FROM SKIN / Unknown 08/06/2021 08/07/2021 2:33 PM CDT Miscellaneous samples (specimen) TISSUE SPECIMEN FROM SKIN / Unknown 08/06/2021 08/07/2021 2:33 PM CDT Soto Schumacher MD LAB - PATHOLOGY/CYTOLOGY ORD ERABLES Final Result DERMATOPATHOLOGY LABORATORY [facility] - Department of Dermatology [facility] [address] [place] [address], [address] Floor [address] [phone] documented in this encounter Visit Diagnoses Not on filedocumented in this encounter
--- OUTSIDE RECORDS SUMMARY | 2024-09-27 08:54 | XMS_ITS | Encounter Summary ---
Author Organization [facility] Address [address] [place] [address] Care Team Providers Care Asbestos Brake Lining Finisher Helper Name Role Phone Unavailable Primary Care Provider Unavailabl e Encounter Details Date Type Department Care Team (Late st Contact Info) Description 08/06/2023 Lab Requisition [facility] - DermPath Lab [address] [place] [id number] Yelitza Jeffrey MD [address] [place] [address] Neoplasm of uncertain behavior of skin Social History Tobacco Use Types Packs/Day Years Used Date Smoking Tobacco: Never Assessed Comments Unknown Sex and Gender Information Value Date Recorded Sex Assigned at Not on file Legal 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 Female 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 Gender Identity Not on file Sexual Orientation Not on file documented as of this encounter Plan of Treatment Not on file documented as of this encounter Procedures Procedure Name Priority Date/Time Associated Diagnosis Comments DERMATOPATHOLOGY Routine 08/06/2023 3:33 AM CDT Neoplasm of uncertain behavior of skin documented in this encounter Results * DERMATOPATHOLOGY (08/06/2023 3:33 AM CDT) Case Report Dermatopathology Report Case: [id number] Authorizing Provider: Yelitza Jeffrey MD Collected: 08/06/2023 03:33 AM Ordering Location: [facility] - Received: 08/07/2023 01:58 PM DermPath Lab Pathologist: Estella Pal MD Specimen: Skin, left superior parietal scalp 1:30 PM CDT DERMATOPATHOLOGY LABORATORY Final Diagnosis Specimen A. SKIN, left superior parietal scalp: HYPERPLASTIC (HYPERTROPHIC) ACTINIC KERATOSIS (L57.0) (see microscopic description) 1:30 PM CDT DERMATOPATHOLOGY LABORATORY at 1330 CDT Clinical History Basal Cell Carcinoma vs Irritated [...] characteristic determined by the Dermatopathology Laboratory at [facility], directed by Dr. Abby Hines. These tests need not be, and therefore are not, approved by the [place] Food and Drug Administration. The tests are used for clinical purposes. Billing Codes Specimen Charges Stain Charges 52702 1 51909 1 1:30 PM CDT DERMATOPATHOLOGY LABORATORY Embedded Images 1:30 PM CDT DERMATOPATHOLOGY LABORATORY Pathology/Cytolo gy TISSUE SPECIMEN FROM SKIN / Unknown 08/06/2023 3:33 AM CDT 08/07/2023 1:58 PM CDT us Yelitza Jeffrey MD LAB - PATHOLOGY/CYTOLOGY ORDERAB LES Final Result DERMATOPATHOLOGY LABORATORY [facility] - Department of Dermatology [address], [address] [phone] documented in this encounter Visit Diagnoses Diagnosis Neoplasm of uncertain behavior of skin documented in this encounter
--- OUTSIDE RECORDS SUMMARY | 2024-09-27 08:54 | XMS_ITS | Continuity of Care Document ---
Author Organization [facility] Address [address] [facility] [address] [facility] [address] [place] [address] Phone Care Team Providers Care Dredge Pump Operator Name Role Phone Taylor OD, Karri Unavailable Unavailable Procedures Procedure Date Office/outpatient Visit, [facility] Advance Directives Directive Yes / No Effective Date File Name No Information Encounters Encounter Description Practice Location Reason(s) For Visit Diagnoses Date Provider Providers Copied on Encounter Office/outpat ient Visit, Est Located within [facility], [address], [place], [place], [id number], [place] tel:[phone] [facility] No Information Jun-0 1-200 7 Taylor OD Karri. [address] , [address], [place], [address], [place]. tel:[phone] Family History Family Member Type Diagnosis Age At Onset No Information Payers Payer name Insurance type Covered constitution party ID Authoriza tion(s) No Information Social History [...]
--- OUTSIDE RECORDS SUMMARY | 2024-09-27 08:54 | XMS_ITS | Referral Summary ---
Author Organization [facility] Address [address] [place] [address] Care Team Providers Care Biochemical Engineer Name Role Phone Robinson Olivo MD Primary [...] 1 tablet (88 mcg total) by mouth theater usher before breakfast 1 Active vitamins A,C,E-zinc-adrian er (ICAPS) [phone],[phone] nnux-af-epdi capsuleIndicati ons:Vitamin Deficiency Take 1 capsule by [...] (04/02/2021): Added automatically from request for surgery [id number] Axillary lymphadenopathy 05/16/2019 History of breast cancer [...] on file Legal Sex Female 2:32 AM INSPECTOR MISSILE Gender Identity Not on file Sexual Orientation Not on file Last Filed Vital Signs Vital Sign Reading Time Taken Comments Blood Pressure 122/67 05/31/2021 8:00 AM INSPECTOR MISSILE Pulse 90 05/31/2021 8:00 AM INSPECTOR MISSILE Temperature 36.1 C (97 F) 05/31/2021 8:00 AM INSPECTOR MISSILE Respiratory Rate 18 2023 11:09 AM CDT Oxygen Saturation 93% 05/31/2021 9:00 AM INSPECTOR MISSILE Inhaled Oxygen Concentration - - Weight 77.1 kg (170 lb) 2023 11:09 AM CDT Height 162.6 cm (5' 4) 2023 11:09 AM CDT Body Mass Index 29.18 2023 11:09 AM CDT Plan of Treatment Not on file Medical Devices Implanted Type Area Hand Sewer Shoes Device Identifier Shelf Expiration Date Model / Serial / Lot Screws,Plates Bilateral: Ankle [employer] [id number] Latitude 8-15mm Restrictor Elbow Restrictor Cement - [id number] - [id number] Implanted:Qty: 1 on 05/30/2021 by Shant Vital MD at [facility] Right: Shoulder [employer] [id number] 02/02/2025 [id number] / [id number] / [employer] Dwx2pl Stem Perform Sz 2 Plus Humeral Long - [id number] - [id number] Implanted:Qty: 1 on 05/30/2021 by Shant Vital MD at [facility] Right: Shoulder [employer] [id number] 09/07/2025 [id number] / [id number] / [employer] [id number] Insert Perform 10 Deg [id number] - [id number] - [id number] Implanted:Qty: 1 on 05/30/2021 by Shant Vital MD at [facility] Right: Shoulder [employer] [id number] 02/18/2026 [id number] / [id number] / [employer] 6191-1-010 Simplex P Radiopaque Full Dose Cement Bone Sterile - [id number] Implanted:Qty: 1 on 05/30/2021 by Shant Vital MD at [facility] Right: Shoulder [employer] 06/18/2023 6191-1-01 0 / / [id number] TorniSOASTA [id number] Tornier Aequalis Perform 25mm Reverse Shoulder Standard Baseplate - [id number] - [id number] Implanted:Qty: 1 on 05/30/2021 by Shant Vital MD at [facility] Right: Shoulder [employer] [id number] 04/09/2026 [id number] / [id number] / [employer]a [id number] Aequalis Perform 7mm Reverse Screw Bone Sterile Latex Free - [id number] - [id number] Implanted:Qty: 1 on 05/30/2021 by Shant Vital MD at [facility] Right: Shoulder [employer] [id number] 05/03/2026 [id number] / [id number] / T[employer]ier Inc [id number] Aequalis Perform Reversed 5mm 26mm Peripheral Glenoid Screw - [id number] Implanted:Qty: 1 on 05/30/2021 by Shant Vital MD at [facility] Right: Shoulder [employer] [id number] / / T[employer]ier Inc [id number] Aequalis Perform Reversed 5mm 18mm Peripheral Glenoid Screw - [id number] Implanted:Qty: 1 on 05/30/2021 by Shant Vital MD at [facility] Right: Shoulder [employer] [id number] / / [employer]ier Inc [id number] Aequalis Perform Reversed 5mm 38mm Peripheral Glenoid Screw - [id number] Implanted:Qty: 1 on 05/30/2021 by Shant Vital MD at [facility] Right: Shoulder [employer] [id number] / / T[employer]ier Inc [id number] Aequalis Perform Reversed 5mm 22mm Peripheral Glenoid Screw - [id number] Implanted:Qty: 1 on 05/30/2021 by Shant Vital MD at [facility] Right: Shoulder [employer] [id number] / / Tornier Inc [id number] Tornier Aequalis Perform 36mm Reverse Shoulder Standard Sphere - [id number] - [id number] Implanted:Qty: 1 on 05/30/2021 by Shant Vital MD at [facility] Right: Shoulder [employer] [id number] 04/01/2026 [id number] / [id number] / Insurance AETNA MEDICARE [facility] MED[facility] Address: [address] [place] [address] UHC MEDICARE ADVANTAGE AETNA MEDICARE [facility] MEDIC[facility] Address: [address] [place] [address] Advance Directives For more information, please contact: [phone] Documents on File Type Date Recorded Patient Lye Peel Operator Expl anation ADVANCE DIRECTIVE 05/30/2021 7:42 AM * Full Code (Latest Code Status on File) Date Activated Date Inactivated Comments 05/30/2021 12:48 PM 05/31/2021 3:48 PM Care Teams Biochemical Engineer Relationship Specialty Start Date End Date Robinson Olivo MD [address] [facility] [address] [place] [address] PCP - General 02/11/17
--- OUTSIDE RECORDS SUMMARY | 2024-09-27 08:54 | XMS_ITS | Continuity of Care Document ---
Author Organization [facility] Address [address] [facility] [facility] [address] [place] [address] Phone Care Team Providers Care Translator Name Role Phone Branden Tinoco MD Unavailable [...] - Active this was called in to [employer] this am also hydroxyzine HCl 25 mg [...] Diagnoses Date Provider Providers Copied on Encounter [facility], [address], [place], [address], [place] tel:[phone] [facility] Hammer toe of left foot 9 Earnest Oteor. [address], [place], [place], [id number] . tel: [phone] [facility], [address] [address], [place], [address], [place] tel:[phone] [facility] Hammer toe of left foot 8 Earnest Otero. [address], [place], [place], [address] . tel: [phone] [facility], [address] [address], [place], [address], [place] tel:[phone] [facility] Hammer toe of left foot 8 Earnest Otero. [address], [place], [place], [address] . tel: [phone] [facility], [address] [place] [address], [place], [address], [place] tel:[phone] [facility] No Information 8 Earnest Otero. [address], [place], [place], [address] . tel: [phone] OFFICE/OUTPAT IENT VISIT EST [facility], [address] [place] [address], [place], [address], [place] tel:[phone] [facility] Hammer toe of left footHammer toe of right foot 8 Earnest Otero. [address], [place], [place], [address] . tel: [phone] Referring Provider: Margarita [address], [place], [address]. tel:[phone] OFFICE/OUTPAT IENT VISIT EST [facility], [address] [place] [address], [place], [address], [place] tel:[phone] [facility] Hammer toe of left footMallet toe of left footMallet toe of right footBody mass index (BMI) 28.0-28.9, adult 8 Laurie Angulosse. [address] [place], [place], [address] . tel: [phone] Referring Provider: Robinson Heath, [address], [place], [address]. tel:[phone] OFFICE/OUTPAT IENT VISIT [facility], [address], [place], [address], tel:[phone] [facility] Left foot (chief complaint) Hallux valgus with bunions of left footHammer toe of left foot 6 Shoe Zandra. [address], [place], [place], [address] . tel: [phone] Family History Family Member Type Diagnosis Age At Onset Brother Problem (finding) Alive and well Daughter Problem (finding) malignant neop lasm of breast in first degree relative Immunizations Vaccine Date Status Comments Pneumo (2 yrs or older)(PPV) administered Source: Other Provider Payers Payer name Insurance type Covered republican ID Briseyda gallo(s) [facility] Group Medicare Advantage [id number] Social History Type Description Quantity Date [...]
--- OUTSIDE RECORDS SUMMARY | 2024-09-27 08:54 | XMS_ITS | Clinical Summary ---
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 Gender Identity Not on file Sexual Orientation Not on file Obstetrics History Last Filed Vital Signs Vital Sign Reading Time Taken Comments Blood Pressure 122/67 05/31/2021 8:00 AM CLAY TEMPERER Pulse 90 05/31/2021 8:00 AM CLAY TEMPERER Temperature 36.1 C (97 F) 05/31/2021 8:00 AM CLAY TEMPERER Respiratory Rate 18 2023 11:09 AM CDT Oxygen Saturation 93% 05/31/2021 9:00 AM CLAY TEMPERER Inhaled Oxygen Concentration - - Weight 77.1 [...] season) 2023 01/21/2021, 07/04/2020, 06/12/2020 Influenza Vaccine (Season Ended) 2024 12/21/2020, 01/02/2020, 01/14/2019, Additional history exists DTaP/Tdap/Td Vaccine (2 - Td or Tdap) 06/16/2026 06/16/2016 Medical Devices Implanted Type Area Deicer Inspector Pneumatic Device Identifier Shelf Expiration Date Model / Serial / Lot Screws,Plates Bilateral: Ankle Tornier Inc [id number] Latitude 8-15mm Restrictor Elbow Restrictor Cement - [id number] - [id number] Implanted:Qty: 1 on 05/30/2021 by Shant Vital MD at [facility] Right: Shoulder [employer] [id number] 02/02/2025 [id number] / [id number] / [employer]TouchEMR Inc Dwx2pl Stem Perform Sz 2 Plus Humeral Long - [id number] - [id number] Implanted:Qty: 1 on 05/30/2021 by Shant Vital MD at [facility] Right: Shoulder [employer] [id number] 09/07/2025 [id number] / [id number] / OneTouchEMR Inc [id number] Insert Perform 10 Deg [id number] - [id number] - [id number] Implanted:Qty: 1 on 05/30/2021 by Shant Vital MD at [facility] Right: Shoulder CQuotient [id number] 02/18/2026 [id number] / [id number] / [employer] 6191-1-010 Simplex P Radiopaque Full Dose Cement Bone Sterile - [id number] Implanted:Qty: 1 on 05/30/2021 by Shant Vital MD at [facility] Right: Shoulder [employer] 06/18/2023 6191-1-01 0 / / [id number] Tornier Inc [id number] Tornier Aequalis Perform 25mm Reverse Shoulder Standard Baseplate - [id number] - [id number] Implanted:Qty: 1 on 05/30/2021 by Shant Vital MD at [facility] Right: Shoulder CQuotient [id number] 04/09/2026 ARQ009 / [id number] / [employer] [id number] Aequalis Perform 7mm Reverse Screw Bone Sterile Latex Free - [id number] - [id number] Implanted:Qty: 1 on 05/30/2021 by Shant Vital MD at [facility] Right: Shoulder [employer] [id number] 05/03/2026 PAV377 / [id number] / Tornier Inc [id number] Aequalis Perform Reversed 5mm 26mm Peripheral Glenoid Screw - [id number] Implanted:Qty: 1 on 05/30/2021 by Shant Vital MD at [facility] Right: Shoulder [employer] OZE358 / / Tornier Inc [id number] Aequalis Perform Reversed 5mm 18mm Peripheral Glenoid Screw - [id number] Implanted:Qty: 1 on 05/30/2021 by Shant Vital MD at [facility] Right: Shoulder [employer] OND451 / / Tornier Inc [id number] Aequalis Perform Reversed 5mm 38mm Peripheral Glenoid Screw - [id number] Implanted:Qty: 1 on 05/30/2021 by Shant Vital MD at [facility] Right: Shoulder [employer] [id number] / / Tornier Inc [id number] Aequalis Perform Reversed 5mm 22mm Peripheral Glenoid Screw - [id number] Implanted:Qty: 1 on 05/30/2021 by Shant Vital MD at [facility] Right: Shoulder [employer] [id number] / / Tornier Inc [id number] Tornier Aequalis Perform 36mm Reverse Shoulder Standard Sphere - [id number] - [id number] Implanted:Qty: 1 on 05/30/2021 by Shant Vital MD at [facility] Right: Shoulder [employer] [id number] 04/01/2026 [id number] / [id number] / Insurance [facility] MEDICARE UHC MEDICARE ADVANTAGE AETNA MEDICARE Advance Directives For more information, please contact: [phone] Documents on File Type Date Recorded Patient Bridge Repair Crew Person Expl anation ADVANCE DIRECTIVE 05/30/2021 7:42 AM * Full Code (Latest Code Status on File) Date Activated Date Inactivated Comments 05/30/2021 12:48 PM 05/31/2021 3:48 PM Care Teams Clinical Implementation Specialist Relationship Specialty Start Date End Date Robinson Olivo MD [address] [facility] [address] [place] [address] PCP - General 02/11/17
== END 2024-09-27 08:37 | disposition home or self-care (01) ==
PROVIDERS: PCP Family Medicine; Visit Provider Physician Assistant Medical
DX: I73.9 Peripheral vascular disease, unspecified (principal)
CPT/HCPCS: 93922